=== PATIENT | male | born 1955 | race Caucasian/White ===

== ENCOUNTER 2017-04-17 12:24 | Inpatient (IN) | payer BC, OTHER ==
[~2017-04-17] VITALS: Ht 177.8 cm; Wt 81.3 kg
[2017-04-17] MEDS ORDERED: MULT-225 PO (13:23)
[2017-04-17 13:39] LABS: HEMATOCRIT 45.9 % (42-52); MEAN CELL VOLUME 86.8 fL (80-100); MEAN CORPUSCULAR HEMOGLOBIN 29.9 pg (25-34); MEAN CORPUSCULAR HGB CONC 34.4 g/dl (32-36); MEAN PLATELET VOLUME 10.8 fL (7.4-10.4); PLATELET COUNT 195 K/uL (130-400); RED BLOOD COUNT 5.29 M/uL (4.7-6.1); WHITE BLOOD COUNT 11.19 K/uL (4.8-10.8)
[2017-04-17 13:50] LABS: PARTIAL THROMBOPLASTIN RATIO 1.1; PROTHROMBIN TIME (PATIENT) 10.7 SECONDS (9.0-12.0)
--- NOTE | 2017-04-17 13:50 | EMERGENCY ROOM VISIT NOTE ---
History First contact with patient: 13:16 Chief Complaint: CHEST PAIN Stated Complaint: CHEST PAIN Nursing Triage Summary: Pt c/o right sided CP that radiates around to right upper back pain started around 0000 "I can't take a deep breath" History of Present Illness The patient is a 61 year old male who presents to the Emergency Room via private vehicle accompanied by family with complaints of "right-sided chest pain that radiates around the back". The patient states that this morning around midnight, he was laying in bed and developed right anterior chest pain. He states it radiated to his right scapular region. He states that he tossed and turned all night, but the pain was minimal nature. He states that he woke up to take care of the horses, and then went grocery shopping. Upon his return to home this morning around 11:30 AM or noon time, the right anterior chest pain worsened, and was feeling as though he could not take a deep breath. He rates the pain as a 5/10. The symptoms are worse with supine positioning. He denies any trauma, history of heart attack, history of diabetes, hypertension, high blood pressure, taking any medications other than a vitamin. He states that there is associated shortness of breath, and it hurts to take a deep breath localized to the right anterior chest. Review of Systems A complete 10-point Review of Systems was discussed with the patient, with pertinent positives and negatives listed in the History of Present Illness. All remaining Review of Systems questions can be considered negative unless otherwise specified. Past Medical/Surgical History Medical Problems: (1) No chronic problems (2) Pulmonary embolism Eczema, elbow surgery Family History Stroke, cancer Social History Smoking Status: Never Smoker Social History: Patient is currently retired, lives with and son. He denies tobacco and alcohol use. Current/Historical Medications Scheduled Multiple Vitamin (Multi-Day Vitamins), 1 TAB PO DAILY Allergies Coded Allergies: Codeine (Unverified Adverse Reaction, Unknown, NAUSEA, 04/17/17) Physical Exam Vital Signs Date Time Temp Pulse Resp B/P (MAP) Pulse Ox O2 Delivery O2 Flow Rate FiO2 04/17/17 15:56 71 16 126/79 97 Room Air 04/17/17 14:32 79 16 150/88 96 Nasal Cannula 2.0 04/17/17 14:22 75 20 145/90 97 Room Air 04/17/17 14:13 63 16 94/55 95 Nasal Cannula 2.0 04/17/17 13:14 90 16 128/76 94 Room Air 04/17/17 13:11 94 Room Air 04/17/17 13:11 94 Room Air 04/17/17 12:36 78 04/17/17 12:28 37.3 83 20 142/82 96 Room Air Physical Exam VITAL SIGNS - Vital signs and nursing notes were reviewed. Patient is afebrile , blood pressure 142/82, non-tachycardic and is saturating on room air 96%. GENERAL -61-year-old male appearing his stated age who is in no acute distress. Communicates well with provider and answers questions appropriately. SKIN - Without rashes. No petechial rashes. The skin overlying the anterior chest is unremarkable. HEAD - NC/AT. EYES - PERRL with EOMI bilaterally. Sclera anicteric. Palpebral conjunctiva pink and moist with no injection noted. EARS - No deformities of external structures noted on gross examination bilaterally. No pain elicited with palpation of the tragus bilaterally. External auditory canals without discharge or otorrhea. Tympanic membranes pearly kapadia without retraction or bulging. No fluid or purulent material visualized behind the TM. Handle of malleus, umbo, cone of light, pars tensa/ flaccid all easily visualized. NOSE - Midline and without cyanosis. No epistaxis or purulent drainage noted. Septum midline without deviation or septal hematoma noted. MOUTH/OROPHARYNX - Without perioral cyanosis. Buccal mucosa pink and moist and without leukoplakia. Tongue midline with equal elevation of palate bilaterally. No tonsillar hypertrophy, erythema, or exudates noted. [] dentition noted. NECK - Neck with FROM. Supple to palpation. No nuchal rigidity. No meningismus. LUNGS - Chest wall symmetric without accessory muscle use, intercostals retractions, or central cyanosis. Normal vesicular breath sounds in the anterior chest, diminished breath sounds appreciated to auscultation of the posterior chest bilaterally. No wheezes, rhonchi or crackles noted. CARDIAC - RRR with S1/S2. No murmur, rubs, or gallops appreciated. ABDOMEN - Abdominal contour without pulsations or visible masses. Negative Bejarano sign. BS normoactive all four quadrants. No tenderness, palpable masses , hepatosplenomegaly, or ascites noted. EXTREMITIES - No clubbing or peripheral cyanosis. No pretibial edema present. +5 /5 strength noted in UE/LE bilaterally. NEUROLOGIC - Cranial nerves II through XII grossly intact. PSYCH - Pt is very pleasant and interacts well with examiner. Medical Decision & Procedures ER Provider Diagnostic Interpretation: SINGLE VIEW CHEST CLINICAL HISTORY: Atypical chest pain. FINDINGS: An AP, portable, upright chest radiograph is compared to study dated 03/27/2011. The heart is top normal for projection and there is mild atherosclerotic calcification of the thoracic aorta. Chronic interstitial thickening similar to previous. Patchy airspace opacities are present at the right lung base. Trace pleural effusions are noted . No pneumothorax is seen. The skeletal structures are osteopenic. The bony thorax is grossly intact. IMPRESSION: 1. Patchy airspace consolidation is seen at the right lung base. Cortical clinically for evidence of pneumonia. Radiographic follow-up to resolution is recommended. 2. Trace pleural effusions are noted. Electronically signed by: Manuel Fontana M.D. 04/17/2017 2:16 PM Dictated Date/Time: 04/17/2017 2:[address] ANGIOGRAPHY THE CHEST WITHOUT A WITH CONTRAST CLINICAL HISTORY: Chest pain rating to the back. Possible dissection COMPARISON STUDY: Chest x-ray dated 04/17/2017 FINDINGS: Unenhanced images were acquired through the chest. There is no evidence of acute aortic hematoma. The patient was then scanned in a dynamic helical fashion during intravenous administration 120 cc of Optiray 320. MIP imaging was performed. There is an 8 mm right lobe thyroid nodule. There is no evidence of thoracic aortic dilatation. There are no intimal flaps to indicate acute aortic dissection. There is a right lower lobe pulmonary artery filling defect indicative a pulmonary embolism There are no pathologically enlarged axillary, mediastinal, or hilar lymph nodes. There is a small right pleural effusion. There are right lower lobe airspace opacities. Given the pulmonary embolism, this could represent an area of lung infarction. There are minor left basilar atelectatic changes. IMPRESSION: 1. No evidence of thoracic aortic aneurysm or dissection 2. Right lower lobe pulmonary embolism 3. Small right pleural effusion 4. Right lower lobe airspace opacities, possibly representing a pulmonary infarction given the associated pulmonary embolism Electronically signed by: Keith Barrera M.D. 04/17/2017 2:41 PM Dictated Date/Time: 04/17/2017 2:34 PM Laboratory Results 04/17/17 13:10 04/17/17 13:10 Test 04/17/17 13:10 04/17/17 13:15 04/17/17 15:30 Red Blood Count 5.29 M/uL (4.7-6.1) Mean Corpuscular Volume 86.8 fL (80-100) Mean Corpuscular Hemoglobin 29.9 pg (25-34) Mean Corpuscular Hemoglobin Concent 34.4 g/dl (32-36) RDW Standard Deviation 43.6 fL (36.4-46.3) RDW Coefficient of Variation 13.7 % (11.5-14.5) Mean Platelet Volume 10.8 fL (7.4-10.4) D-Dimer 1030 ug/L FEU (0-500) Anion Gap 9.0 mmol/L (3-11) Est Creatinine Clear Calc Drug Dose 63.9 ml/min Estimated GFR () 74.7 Estimated GFR (Non- 64.4 BUN/Creatinine Ratio 14.3 (10-20) Calcium Level 9.4 mg/dl (8.5-10.1) Total Bilirubin 0.6 mg/dl (0.2-1) Aspartate Amino Transf (AST/SGOT) 17 U/L (15-37) Alanine Aminotransferase (ALT/SGPT) 34 U/L (12-78) Alkaline Phosphatase 75 U/L (45-117) Total Creatine Kinase 92 U/L (39-308) Creatine Kinase MB 0.8 ng/ml (0.5-3.6) Creatine Kinase MB Ratio 0.9 (0-3.0) Pro-B-Type Natriuretic Peptide 52 pg/ml (0-900) Total Protein 7.3 gm/dl (6.4-8.2) Albumin 3.6 gm/dl (3.4-5.0) Globulin 3.7 gm/dl (2.5-4.0) Albumin/Globulin Ratio 1.0 (0.9-2) Lipase 176 U/L (73-393) Bedside Troponin I < 0.030 ng/ml (0-0.045) Prothrombin Time 10.8 SECONDS (9.0-12.0) Prothromb Time International Ratio 1.0 (0.9-1.1) Folate > 24.00 ng/mL (>5.38) Medications Administered Medications (Trade) Dose Ordered Sig/Daniel Route Start Time Stop Time Status Last Admin Dose Admin Fentanyl Citrate (Fentanyl Inj) 100 mcg STK-MED ONCE .ROUTE 04/17/17 14:16 04/17/17 14:17 DC 04/17/17 14:22 50 MCG Ondansetron HCl (Zofran Inj) 4 mg STK-MED ONCE .ROUTE 04/17/17 14:16 04/17/17 14:17 DC 04/17/17 14:22 4 MG Hydromorphone HCl (Dilaudid Inj) 0.5 mg NOW STAT IV 04/17/17 15:14 04/17/17 15:15 DC 04/17/17 15:23 0.5 MG Heparin Sodium/ Dextrose (Heparin 25,000 Unit/500ml D5W) 25,000 unit STK-MED ONCE .ROUTE 04/17/17 15:20 04/17/17 15:21 DC 04/17/17 15:49 25,000 UNIT Heparin Sodium (Porcine) (Heparin Sq 5000 Unit/0.5ml) 10,000 unit STK-MED ONCE .ROUTE 04/17/17 15:21 04/17/17 15:22 DC 04/17/17 15:48 6,000 UNIT Medical Decision Patient was seen and evaluated as above. After obtaining a thorough history and physical examination IV access was initiated and the above workup was performed. Patient has inspiratory right anterior chest pain. Initial differentials include NM, PE, dissection among others. Blood work is relatively unremarkable with a minimal leukocytosis. Chest x-ray reveals small pleural effusion, with concern over pneumonia. I was called to the room emergently, as the patient had become hypotensive, diaphoretic and pale. I did call my attending to the patient's bedside emergently. D-dimer elevated at 1030. No evidence of overt kidney failure. Electrolyte unremarkable. Kidney function and liver function okay. Troponin negative. BNP unremarkable. Stat CT for dissection was ordered. This was due to the patient's change in symptoms as well as increase of chest pain. CT scan results as above, there is evidence of a PE. Concern over infarct. Patient will be admitted for further evaluation and management. He was given fentanyl for his pain. The patient family was fairly educated upon today's findings. Please refer to further documentation regarding his stay. In evaluation treatment this patient following differential diagnoses were entertained: NM, PE, dissection, among others. Impression Primary Impression: Pulmonary embolism and infarction Departure Information Dispostion Admitted as an inpatient Condition FAIR Referrals Ernesto Charles M.D. (PCP) Patient Instructions [facility]
[2017-04-17 14:03] LABS: BUN/CREATININE RATIO 14.3 (10-20); CALCIUM 9.4 mg/dl (8.5-10.1); CREATININE 1.2 mg/dl (0.60-1.40); POTASSIUM 4.2 mmol/L (3.5-5.1)
[2017-04-17 14:08] LABS: CKMB/CK RATIO 0.9 (0-3.0)
[2017-04-17] MEDS ORDERED: ONDANSETRON INJ 2 MG/ML 2 ML VIAL ONE (14:16)
[2017-04-17] MEDS ORDERED: FENTANYL CITRATE INJ 50 MCG/1 ML 2 ML VIAL ONE (14:16)
--- NOTE | 2017-04-17 14:18 | DIAGNOSTIC IMAGING REPORT ---
SINGLE VIEW CHEST CLINICAL HISTORY: Atypical chest pain. FINDINGS: An AP, portable, upright chest radiograph is compared to study dated 03/27/2011. The heart is top normal for projection and there is mild atherosclerotic calcification of the thoracic aorta. Chronic interstitial thickening similar to previous. Patchy airspace opacities are present at the right lung base. Trace pleural effusions are noted . No pneumothorax is seen. The skeletal structures are osteopenic. The bony thorax is grossly intact. IMPRESSION: 1. Patchy airspace consolidation is seen at the right lung base. Cortical clinically for evidence of pneumonia. Radiographic follow-up to resolution is recommended. 2. Trace pleural effusions are noted. Electronically signed by: Manuel Fontana M.D. 04/17/2017 2:16 PM Dictated Date/Time: 04/17/2017 2:14 PM
[2017-04-17] MEDS ORDERED: OPTIRAY 320 IV PRN (14:30)
--- NOTE | 2017-04-17 14:43 | DIAGNOSTIC IMAGING REPORT ---
CT ANGIOGRAPHY THE CHEST WITHOUT A WITH CONTRAST CLINICAL HISTORY: Chest pain rating to the back. Possible dissection COMPARISON STUDY: Chest x-ray dated 04/17/2017 FINDINGS: Unenhanced images were acquired through the chest. There is no evidence of acute aortic hematoma. The patient was then scanned in a dynamic helical fashion during intravenous administration 120 cc of Optiray 320. MIP imaging was performed. There is an 8 mm right lobe thyroid nodule. There is no evidence of thoracic aortic dilatation. There are no intimal flaps to indicate acute aortic dissection. There is a right lower lobe pulmonary artery filling defect indicative a pulmonary embolism There are no pathologically enlarged axillary, mediastinal, or hilar lymph nodes. There is a small right pleural effusion. There are right lower lobe airspace opacities. Given the pulmonary embolism, this could represent an area of lung infarction. There are minor left basilar atelectatic changes. IMPRESSION: 1. No evidence of thoracic aortic aneurysm or dissection 2. Right lower lobe pulmonary embolism 3. Small right pleural effusion 4. Right lower lobe airspace opacities, possibly representing a pulmonary infarction given the associated pulmonary embolism Electronically signed by: Keith Barrera M.D. 04/17/2017 2:41 PM Dictated Date/Time: 04/17/2017 2:34 PM
[2017-04-17] MEDS ORDERED: HYDROmorphone INJ 0.5 MG/0.5 ML SYR IV STA (15:14)
[2017-04-17] MEDS ORDERED: HEPARIN 25000 UNIT/500 ML D5W ONE (15:20)
[2017-04-17] MEDS ORDERED: HEPARIN SOD 5000 UNIT/0.5 ML CARP ONE (15:21)
[2017-04-17 16:04] LABS: PROTHROMBIN TIME (PATIENT) 10.8 SECONDS (9.0-12.0)
[2017-04-17] MEDS ORDERED: ACETAMINOPHEN 325 MG TAB PO PRN (17:00)
[2017-04-17] MEDS ORDERED: ONDANSETRON INJ 2 MG/ML 2 ML VIAL IV PRN (17:00)
--- NOTE | 2017-04-17 17:08 | History and Physical ---
History & Physical Date & Time of Service: Apr 17, 2017 at 16:58 Chief Complaint: Chest Pain Primary Care Physician: Ernesto Charles M.D. History of Present Illness Source: patient, family, clinic records, hospital records 61 year old male with no known past medical history presenting with chest pain. Patient follows with Dr. Charles for Primary Care. 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 No recent surgery, long car or plane rides, episode of being bed bound. A few weeks ago, he noticed right upper leg swelling and tenderness, which resolved eventually. Last night, patient suddenly developed rights sided chest pain, worse with inspiration which persisted until today. Denies cough, sputum, hemoptysis, fever/chills. Pain persisted today prompting consult to the ER. CT chest (+ ) right lower lobe PE with pulmonary infarct Patient was started on Heparin bolus + drip and fentanyl and dilaudid. While being observed at the ER, after his blood draw, patient was having extreme right sided chest pain and then felt like he was passing out and noted to be pale He was laid down and after pain medication was given, felt improved. On exam, patient seen with family at bedside. He is very pleasant, speaks in sentences but still has moderate chest pain. No active dyspnea, dizziness, nausea. No other symptoms. Past Medical/Surgical History Medical Problems: (1) No chronic problems Status: Chronic Family History No pertinent family history Social History Smoking Status: Never Smoker Smokeless Tobacco Use: No Alcohol Use: none Drug Use: none Marital Status: Housing status: lives with family Occupational Status: employed Multi-Drug Resistant Organisms History of MDRO: No Allergies Coded Allergies: Codeine (Unverified Adverse Reaction, Unknown, NAUSEA, 04/17/17) Home Medications Scheduled Multiple Vitamin (Multi-Day Vitamins), 1 TAB PO DAILY Review of Systems Constitutional- no fever; no weight loss Eyes- no acute visual changes ENT- no sinus drainage; no pharyngitis Pulmonary-(+) as noted above Cardiac- no chest pain, no palpitations, no orthopnea, no dependent edema GI- no nausea, no vomiting, no diarrhea, no melena, no hematochezia - no dysuria, no hematuria Musculoskeletal- no arthralgias, no myalgias Derm- no rashes, no new skin lesions, no changing skin lesions Hematologic- no unusual bruising, no unusual bleeding Lymphatics- no adenopathy Endocrine- no polyuria or polydipsia; no heat or cold intolerance Neuro- no headaches, no focal neurologic symptoms Psych- no anxiety, no depression Physical Exam Vital Signs Date Time Temp Pulse Resp B/P (MAP) Pulse Ox O2 Delivery O2 Flow Rate FiO2 04/17/17 16:48 74 04/17/17 16:36 67 16 128/75 98 Room Air 04/17/17 15:56 71 16 126/79 97 Room Air 04/17/17 14:32 79 16 150/88 96 Nasal Cannula 2.0 04/17/17 14:22 75 20 145/90 97 Room Air 04/17/17 14:13 63 16 94/55 95 Nasal Cannula 2.0 04/17/17 13:14 90 16 128/76 94 Room Air 04/17/17 13:11 94 Room Air 04/17/17 13:11 94 Room Air 04/17/17 12:36 78 04/17/17 12:28 37.3 83 20 142/82 96 Room Air General Appearance: WD/WN, no apparent distress Head: normocephalic, atraumatic Eyes: normal inspection, PERRL, EOMI, sclerae normal ENT: normal ENT inspection, hearing grossly normal, pharynx normal Neck: supple, no adenopathy, thyroid normal, no JVD, trachea midline Respiratory/Chest: lungs clear, normal breath sounds, no respiratory distress, no accessory muscle use Cardiovascular: regular rate, rhythm, no JVD, no murmur, normal peripheral pulses Abdomen/GI: normal bowel sounds, non tender, soft Back: normal inspection, no CVA tenderness Extremities/Musculoskelatal: normal inspection, no calf tenderness, no pedal edema 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, no motor/sensory deficits, alert, normal mood/affect, oriented x 3 Skin: normal color, warm/dry, no rash Lymphatic: no adenopathy Diagnostics Laboratory Results Results Past 24 Hours Test 04/17/17 13:10 04/17/17 13:15 04/17/17 15:30 Range/Units White Blood Count 11.19 4.8-10.8 K/uL Red Blood Count 5.29 4.7-6.1 M/uL Hemoglobin 15.8 14.0-18.0 g/dL Hematocrit 45.9 42-52 % Mean Corpuscular Volume 86.8 80-100 fL Mean Corpuscular Hemoglobin 29.9 25-34 pg Mean Corpuscular Hemoglobin Concent 34.4 32-36 g/dl RDW Standard Deviation 43.6 36.4-46.3 fL RDW Coefficient of Variation 13.7 11.5-14.5 % Platelet Count 195 130-400 K/uL Mean Platelet Volume 10.8 7.4-10.4 fL Prothrombin Time 10.7 10.8 9.0-12.0 SECONDS Prothromb Time International Ratio 1.0 1.0 0.9-1.1 Activated Partial Thromboplast Time 27.5 25.2 21.0-31.0 SECONDS Partial Thromboplastin Ratio 1.1 1.0 D-Dimer 1030 0-500 ug/L FEU Sodium Level 139 136-145 mmol/L Potassium Level 4.2 3.5-5.1 mmol/L Chloride Level 101 98-107 mmol/L Carbon Dioxide Level 29 21-32 mmol/L Anion Gap 9.0 3-11 mmol/L Blood Urea Nitrogen 17 7-18 mg/dl Creatinine 1.20 0.60-1.40 mg/dl Est Creatinine Clear Calc Drug Dose 63.9 ml/min Estimated GFR () 74.7 Estimated GFR (Non- 64.4 BUN/Creatinine Ratio 14.3 10-20 Random Glucose 112 70-99 mg/dl Calcium Level 9.4 8.5-10.1 mg/dl Total Bilirubin 0.6 0.2-1 mg/dl Aspartate Amino Transf (AST/SGOT) 17 15-37 U/L Alanine Aminotransferase (ALT/SGPT) 34 12-78 U/L Alkaline Phosphatase 75 45-117 U/L Total Creatine Kinase 92 39-308 U/L Creatine Kinase MB 0.8 0.5-3.6 ng/ml Creatine Kinase MB Ratio 0.9 0-3.0 Pro-B-Type Natriuretic Peptide 52 0-900 pg/ml Total Protein 7.3 6.4-8.2 gm/dl Albumin 3.6 3.4-5.0 gm/dl Globulin 3.7 2.5-4.0 gm/dl Albumin/Globulin Ratio 1.0 0.9-2 Lipase 176 73-393 U/L Bedside Troponin I < 0.030 0-0.045 ng/ml Folate > 24.00 >5.38 ng/mL Diagnostic Radiology CT ANGIOGRAPHY THE CHEST WITHOUT A WITH CONTRAST CLINICAL HISTORY: Chest pain rating to the back. Possible dissection COMPARISON STUDY: Chest x-ray dated 04/17/2017 FINDINGS: Unenhanced images were acquired through the chest. There is no evidence of acute aortic hematoma. The patient was then scanned in a dynamic helical fashion during intravenous administration 120 cc of Optiray 320. MIP imaging was performed. There is an 8 mm right lobe thyroid nodule. There is no evidence of thoracic aortic dilatation. There are no intimal flaps to indicate acute aortic dissection. There is a right lower lobe pulmonary artery filling defect indicative a pulmonary embolism There are no pathologically enlarged axillary, mediastinal, or hilar lymph nodes. There is a small right pleural effusion. There are right lower lobe airspace opacities. Given the pulmonary embolism, this could represent an area of lung infarction. There are minor left basilar atelectatic changes. IMPRESSION: 1. No evidence of thoracic aortic aneurysm or dissection 2. Right lower lobe pulmonary embolism 3. Small right pleural effusion 4. Right lower lobe airspace opacities, possibly representing a pulmonary infarction given the associated pulmonary embolism EKG sinus rhythm, heart rate 80, no signs of acute ischemia or infarct Impression Assessment and Plan 61 year old male with no known past medical history presenting with chest pain. ACUTE PULMONARY EMBOLISM WITH PULMONARY INFARCT, RIGHT LOWER LOBE - BP and O2 sats stable - hypercoag work up pending check Echo - continue Heparin drip, possible transition to coumadin or NOACs tomorrow PRN Dilaudid Incentive spirometry - will consult Pulm SVC NEAR SYNCOPE - likely vasovagal - IV fluids monitor BP THYROID NODULE - seen on CT chest - check TSH Full code per patient Dispo pending anticipate d/c home when medically stable Level of Care Telemetry Advanced Directives Existing Advance Directive: No Resuscitation Status FULL RESUSCITATION VTE Prophylaxis VTE Risk Assessment Done? Y/N: Yes Risk Level: High Given or contraindicated: Unfractionated heparin SQ
[2017-04-17] MEDS ORDERED: HYDROmorphone INJ 0.5 MG/0.5 ML SYR IV ONE (17:15)
[2017-04-17 17:55] VITALS: BP 125/73; PULSE 78; TEMP 37.1; O2SAT 95; Ht 177.8 cm; Wt 81.3 kg
[2017-04-17] MEDS: SODIUM CHLORIDE 0.9% 1000ML 1,000 ML IV SCH (18:00)
[2017-04-17 19:33] VITALS: BP 116/75; PULSE 67; TEMP 37.2; O2SAT 94
[2017-04-17] MEDS: HYDROmorphone INJ 0.5 MG/0.5 ML SYR IV PRN (19:59)
--- NOTE | 2017-04-17 20:48 | EMERGENCY ROOM VISIT NOTE ---
History Report prepared by Madeline: Checo Calderon Under the Supervision of: Dr. Bam Joyce M.D. First contact with patient: 13:16 Chief Complaint: CHEST PAIN Stated Complaint: CHEST PAIN Nursing Triage Summary: Pt c/o right sided CP that radiates around to right upper back pain started around 0000 "I can't take a deep breath" History of Present Illness The patient is a 61 year old male who presents to the Emergency Room via private vehicle accompanied by family with complaints of worsening "right-sided chest pain that radiates around the back". The patient states that this morning around midnight, he was laying in bed and developed right anterior chest pain. He notes that it radiated to his right scapular region. He states that he tossed and turned all night, but the pain was minimal in nature. He says that he woke up to take care of the horses, and then went grocery shopping. Upon his return to home this morning around 11:30 AM or noon time, the right anterior chest pain worsened, and was feeling as though he could not take a deep breath. He currently rates the pain as a 7/10 in severity, which is not getting any better. The symptoms are worse with supine positioning. He denies any trauma, history of heart attack, history of diabetes, hypertension, high blood pressure, or taking any medications other than a vitamin. He states that there is associated shortness of breath, and it hurts to take a deep breath localized to the right anterior chest. Pt denies LOC, headache, fevers, chills, visual changes, neck pain, nausea, vomiting, abdominal pain, melena, hematochezia, urinary symptoms, numbness, weakness, lymphadenopathy, rash, or other complaints. Source of History: patient Onset: Around midnight Position: chest (right) Symptom Intensity: currently 7/10, at worst 7/10 Timing: other (persistent) Modifying Factors (Worsening): other (with supine positioning) Associated Symptoms: + SOB, + back pain Review of Systems See HPI for pertinent positives and negatives. A total of ten systems were reviewed and were otherwise negative. Past Medical & Surgical Medical Problems: (1) No chronic problems (2) Pulmonary embolism Family History No pertinent family history Social History Smoking Status: Never Smoker Marital Status: Housing Status: lives with family Occupation Status: retired Current/Historical Medications Scheduled Multiple Vitamin (Multi-Day Vitamins), 1 TAB PO DAILY Allergies Coded Allergies: Codeine (Unverified Adverse Reaction, Unknown, NAUSEA, 04/17/17) Physical Exam Vital Signs Date Time Temp Pulse Resp B/P (MAP) Pulse Ox O2 Delivery O2 Flow Rate FiO2 04/17/17 15:56 71 16 126/79 97 Room Air 04/17/17 14:32 79 16 150/88 96 Nasal Cannula 2.0 04/17/17 14:22 75 20 145/90 97 Room Air 04/17/17 14:13 63 16 94/55 95 Nasal Cannula 2.0 04/17/17 13:14 90 16 128/76 94 Room Air 04/17/17 13:11 94 Room Air 04/17/17 13:11 94 Room Air 04/17/17 12:36 78 04/17/17 12:28 37.3 83 20 142/82 96 Room Air Physical Exam GENERAL: Awake, alert, diaphoretic, uncomfortable appearing, in moderate distress. HENT: Normocephalic, atraumatic. Oropharynx unremarkable. EYES: Normal conjunctiva. Sclera non-icteric. NECK: Supple. No nuchal rigidity. FROM. No JVD. RESPIRATORY: Clear to auscultation. CARDIAC: Regular rate, normal rhythm. Extremities warm and well perfused. Pulses equal. ABDOMEN: Soft, non-distended. No tenderness to palpation. No rebound or guarding. No masses. RECTAL: Deferred. MUSCULOSKELETAL: Chest examination reveals no tenderness. The back is symmetrical on inspection without obvious abnormality. There is no CVA tenderness to palpation. No joint edema. LOWER EXTREMITIES: Calves are equal size bilaterally and non-tender. No edema. No discoloration. NEURO: Normal sensorium. No sensory or motor deficits noted. SKIN: No rash or jaundice noted. Medical Decision & Procedures ER Provider Diagnostic Interpretation: Radiology results as stated below per my review and radiologist interpretation: SINGLE VIEW CHEST CLINICAL HISTORY: Atypical chest pain. FINDINGS: An AP, portable, upright chest radiograph is compared to study dated 03/27/2011. The heart is top normal for projection and there is mild atherosclerotic calcification of the thoracic aorta. Chronic interstitial thickening similar to previous. Patchy airspace opacities are present at the right lung base. Trace pleural effusions are noted . No pneumothorax is seen. The skeletal structures are osteopenic. The bony thorax is grossly intact. IMPRESSION: 1. Patchy airspace consolidation is seen at the right lung base. Cortical clinically for evidence of pneumonia. Radiographic follow-up to resolution is recommended. 2. Trace pleural effusions are noted. Electronically signed by: Manuel Fontana M.D. 04/17/2017 2:16 PM Dictated Date/Time: 04/17/2017 2:[address] ANGIOGRAPHY THE CHEST WITHOUT A WITH CONTRAST CLINICAL HISTORY: Chest pain rating to the back. Possible dissection COMPARISON STUDY: Chest x-ray dated 04/17/2017 FINDINGS: Unenhanced images were acquired through the chest. There is no evidence of acute aortic hematoma. The patient was then scanned in a dynamic helical fashion during intravenous administration 120 cc of Optiray 320. MIP imaging was performed. There is an 8 mm right lobe thyroid nodule. There is no evidence of thoracic aortic dilatation. There are no intimal flaps to indicate acute aortic dissection. There is a right lower lobe pulmonary artery filling defect indicative a pulmonary embolism There are no pathologically enlarged axillary, mediastinal, or hilar lymph nodes. There is a small right pleural effusion. There are right lower lobe airspace opacities. Given the pulmonary embolism, this could represent an area of lung infarction. There are minor left basilar atelectatic changes. IMPRESSION: 1. No evidence of thoracic aortic aneurysm or dissection 2. Right lower lobe pulmonary embolism 3. Small right pleural effusion 4. Right lower lobe airspace opacities, possibly representing a pulmonary infarction given the associated pulmonary embolism Electronically signed by: Keith Barrera M.D. 04/17/2017 2:41 PM Dictated Date/Time: 04/17/2017 2:34 PM Laboratory Results 04/17/17 13:10 04/17/17 13:10 Test 04/17/17 13:10 04/17/17 13:15 04/17/17 15:30 Red Blood Count 5.29 M/uL (4.7-6.1) Mean Corpuscular Volume 86.8 fL (80-100) Mean Corpuscular Hemoglobin 29.9 pg (25-34) Mean Corpuscular Hemoglobin Concent 34.4 g/dl (32-36) RDW Standard Deviation 43.6 fL (36.4-46.3) RDW Coefficient of Variation 13.7 % (11.5-14.5) Mean Platelet Volume 10.8 fL (7.4-10.4) D-Dimer 1030 ug/L FEU (0-500) Anion Gap 9.0 mmol/L (3-11) Est Creatinine Clear Calc Drug Dose 63.9 ml/min Estimated GFR () 74.7 Estimated GFR (Non- 64.4 BUN/Creatinine Ratio 14.3 (10-20) Calcium Level 9.4 mg/dl (8.5-10.1) Total Bilirubin 0.6 mg/dl (0.2-1) Aspartate Amino Transf (AST/SGOT) 17 U/L (15-37) Alanine Aminotransferase (ALT/SGPT) 34 U/L (12-78) Alkaline Phosphatase 75 U/L (45-117) Total Creatine Kinase 92 U/L (39-308) Creatine Kinase MB 0.8 ng/ml (0.5-3.6) Creatine Kinase MB Ratio 0.9 (0-3.0) Pro-B-Type Natriuretic Peptide 52 pg/ml (0-900) Total Protein 7.3 gm/dl (6.4-8.2) Albumin 3.6 gm/dl (3.4-5.0) Globulin 3.7 gm/dl (2.5-4.0) Albumin/Globulin Ratio 1.0 (0.9-2) Lipase 176 U/L (73-393) Bedside Troponin I < 0.030 ng/ml (0-0.045) Prothrombin Time 10.8 SECONDS (9.0-12.0) Prothromb Time International Ratio 1.0 (0.9-1.1) Activated Partial Thromboplast Time 25.2 SECONDS (21.0-31.0) Partial Thromboplastin Ratio 1.0 Folate > 24.00 ng/mL (>5.38) Laboratory results reviewed by me Medications Administered Medications (Trade) Dose Ordered Sig/Daniel Route Start Time Stop Time Status Last Admin Dose Admin Fentanyl Citrate (Fentanyl Inj) 100 mcg STK-MED ONCE .ROUTE 04/17/17 14:16 04/17/17 14:17 DC 04/17/17 14:22 50 MCG Ondansetron HCl (Zofran Inj) 4 mg STK-MED ONCE .ROUTE 04/17/17 14:16 04/17/17 14:17 DC 04/17/17 14:22 4 MG Hydromorphone HCl (Dilaudid Inj) 0.5 mg NOW STAT IV 04/17/17 15:14 04/17/17 15:15 DC 04/17/17 15:23 0.5 MG Heparin Sodium/ Dextrose (Heparin 25,000 Unit/500ml D5W) 25,000 unit STK-MED ONCE .ROUTE 04/17/17 15:20 04/17/17 15:21 DC 04/17/17 15:49 25,000 UNIT Heparin Sodium (Porcine) (Heparin Sq 5000 Unit/0.5ml) 10,000 unit STK-MED ONCE .ROUTE 04/17/17 15:21 04/17/17 15:22 DC 04/17/17 15:48 6,000 UNIT ECG Indication: chest pain Rate (beats per minute): 74 Rhythm: normal sinus Findings: no acute ischemic change, no ectopy ED Course 1413: The patient was evaluated in room A11B. A complete history and physical exam was performed. 1445: Upon reexamination, the patient was resting comfortably. I discussed the test results and treatment plan with the patient and family. The patient will be evaluated for further management. 1502: I discussed the patient with Mary Curtis - she will evaluate the patient for further treatment. Medical Decision Blood pressure screening: Patient was found to have an elevated blood pressure and was referred to their primary doctor for recheck and further treatment. Triage Nursing notes reviewed. The patient's presentation and history were concerning for right-sided chest pain. The patient was receiving by Amarjit Oro PA-C and had a nonischemic ECG. The patient then developed worsening pain and became diaphoretic and hypotensive. Ice and care of the patient. He was given a dose of IV fentanyl after his blood pressure improved. He was placed on supplemental oxygen. He was still feeling discomfort and it was very pleuritic. His CBC and chemistry panel were unremarkable. The patient was taken to the CT suite for emergent imaging for concerns about dissection or possible pulmonary embolism. The patient did not have any evidence of dissection or pneumothorax. A right-sided pulmonary embolism and pulmonary infarction was noted. The patient was started on IV heparin after upper quadrant ability labs were drawn. Amarjit and Laura did discuss this issue with the patient and family. He will need further evaluation and management in the hospital. The patient was given a dose of IV Dilaudid and Zofran. Consultation was made with internal medicine. The patient was evaluated in the Emergency Room for further treatment. Consults Time Called: 1500 Consulting Physician: Mary Curtis Returned Call: 1502 I discussed the patient with Mary Curtis - she will evaluate the patient for further treatment. Impression Primary Impression: Pulmonary embolism and infarction Critical Care I have personally spent greater than 30 minutes of critical care time in the direct management of this patient. This includes bedside care, interpretation of diagnostic studies, and testing, discussion with consultants, patient, and family members, and other required patient management activities. This 30 minutes is in excess of all separately billable procedures. Scribe Attestation The scribe's documentation has been prepared under my direction and personally reviewed by me in its entirety. I confirm that the note above accurately reflects all work, treatment, procedures, and medical decision making performed by me. Departure Information Dispostion Being Evaluated By Hospitalist Referrals Ernesto Charles M.D. (PCP) Patient Instructions [facility]
[2017-04-17 23:46] VITALS: BP 111/69; PULSE 66; TEMP 36.7; O2SAT 95
[2017-04-18] VITALS (8 sets, daily range): BP systolic 109–159; BP diastolic 63–82; PULSE 60–90; TEMP 36.6–38.3; O2SAT 92–97
[2017-04-18 02:00] LABS: URINE APPEARANCE CLEAR (CLEAR); URINE BILIRUBIN NEG (NEG); URINE COLOR YELLOW; URINE NITRITE NEG (NEG); URINE SPECIFIC GRAVITY 1.044 (1.000-1.030); UROBILINOGEN NEG (NEG); ZZUR CULT IF INDIC CLEAN CATCH NO
[2017-04-18 02:10] LABS: MANUAL MICROSCOPIC REQUIRED? NO; REVIEW REQ? NO
[2017-04-18] MEDS: SODIUM CHLORIDE 0.9% 1000ML 1,000 ML IV SCH ×3 (02:45→23:01)
[2017-04-18] MEDS: HYDROmorphone INJ 0.5 MG/0.5 ML SYR IV PRN ×3 (02:45→15:16)
[2017-04-18 04:53] LABS: BASO % 0.1 %; BASO ABS # 0.01 K/uL (0-0.2); COMPLETE YES; HEMATOCRIT 41.2 % (42-52); IG% 0.2 %; LYMPH % 5.6 %; LYMPH ABS # 0.71 K/uL (1.2-3.4); MEAN CELL VOLUME 86.9 fL (80-100); MEAN CORPUSCULAR HEMOGLOBIN 28.5 pg (25-34); MEAN CORPUSCULAR HGB CONC 32.8 g/dl (32-36); MEAN PLATELET VOLUME 10.1 fL (7.4-10.4); MONO % 9.3 %; NEUT % 84.8 %; PLATELET COUNT 167 K/uL (130-400); RED BLOOD COUNT 4.74 M/uL (4.7-6.1); WHITE BLOOD COUNT 12.69 K/uL (4.8-10.8)
[2017-04-18 05:11] LABS: BUN/CREATININE RATIO 18.1 (10-20); POTASSIUM 4.3 mmol/L (3.5-5.1)
[2017-04-18 05:21] LABS: THYROID STIMULATING HORMONE 0.407 uIu/ml (0.300-4.500)
[2017-04-18 05:35] LABS: CALCIUM 8.4 mg/dl (8.5-10.1)
[2017-04-18] MEDS: HEPARIN 25,000 UNIT/500ML D5W 500 ML IV PRN ×2 (06:56→10:14)
[2017-04-18] MEDS: MULTIVITAMIN TAB PO SCH (07:34)
--- NOTE | 2017-04-18 12:06 | Pulmonary Consultation ---
History General Date of Service: Apr 18, 2017. Stated Complaint: Pulmonary Embolism HPI The patient is a 61 year old male who presents to [facility] with complaints of Pulmonary Embolism. The patient's primary care provider is Ernesto Charles M.D.. The patient says about 2.5 months ago he was carrying a log with his son in law who tripped and the log fell on the patients inner thigh and caused swelling and hematoma (blue violaceous color). The patient did not think much of it and it slowly resolved. He is active and works/walks/climbs stairs every day. No recent long car travel no flight travel/train travel. About 2 weeks ago he noted soreness in his right ankle when he walks no swelling erythma or warmth/hot sensation there. He had no swelling in the calf and did not think much of it. Yesterday in am he had excruciating right sided chest pain which was associated with some SOB but no palpitation nausea dizziness or diaphoresis. He arrived to ED and a CT angiogram was done to rule out aortic dissection. No dissection noted by a RLL filling density was seen. He was started on heparin. Patient denies history of GI bleed hematuria family history of clots weight loss decreased apetite or history of malignancy no history of arthritis. He had a near suncope in the ED apparently but the says he reacts by vasovagal manner to pains and stressors. Review of Systems Constitutional: reports: no symptoms Eyes: reports: no symptoms ENT: reports: no symptoms Cardiovascular: reports: as stated in HPI Respiratory: reports: as stated in HPI Gastrointestinal: reports: no symptoms Genitourinary - Male: reports: no symptoms Musculoskeletal: reports: as stated in HPI Integumentary: reports: no symptoms Neurologic: reports: no symptoms Endocrine: no symptoms Past Medical History Past Medical History: no reported chronic medical illnesses or surgical issues Family History No pertinent family history no history of clots or autoimmune diseases. Social History Hx Tobacco Use In Past Year?: No Smoking Status: Never Smoker Marital status: Housing status: lives with family Occupational Status: retired History of MDRO History of MDRO: No Allergies Coded Allergies: Codeine (Unverified Adverse Reaction, Unknown, NAUSEA, 04/17/17) Current Medications Reported Home Medications Medications Dose Route/Sig Max Daily Dose Days Date Category Multi-Day Vitamins (Multiple Vitamin) 1 Tab Tab 1 Tab PO DAILY 04/17/17 Reported Physical Physical Exam Vital Signs: Date Time Temp Pulse Resp B/P (MAP) Pulse Ox O2 Delivery O2 Flow Rate FiO2 04/18/17 08:00 Room Air 04/18/17 07:37 36.6 67 20 109/67 (81) 96 Room Air 04/18/17 04:00 Room Air 04/18/17 03:45 36.8 70 16 109/70 (83) 94 Room Air 04/18/17 00:00 Room Air 04/17/17 23:46 36.7 66 16 111/69 (83) 95 Room Air 04/17/17 19:33 37.2 67 20 116/75 (89) 94 Room Air 04/17/17 17:55 37.1 78 16 125/73 95 Room Air 04/17/17 16:48 74 04/17/17 16:36 67 16 128/75 98 Room Air 04/17/17 15:56 71 16 126/79 97 Room Air 04/17/17 14:32 79 16 150/88 96 Nasal Cannula 2.0 04/17/17 14:22 75 20 145/90 97 Room Air 04/17/17 14:13 63 16 94/55 95 Nasal Cannula 2.0 04/17/17 13:14 90 16 128/76 94 Room Air 04/17/17 13:11 94 Room Air 04/17/17 13:11 94 Room Air 04/17/17 12:36 78 04/17/17 12:28 37.3 83 20 142/82 96 Room Air General Appearance: WELL-APPEARING, severe distress, other (he was given pain medicine and appeared drowsy but arousablke and conversive.) Head: NORMOCEPHALIC Eyes: PERRLA ENT: NORMAL THROAT EXAM Neck: NORMAL RANGE OF MOTION, NO TENDERNESS, TRACHEA MIDLINE, NO STRIDOR, SUPPLE Respiratory: other (diminished breath sounds RLL field clear to auscultation on the left.) Cardiovasular: REGULAR RATE/RHYTHM, NO MURMUR Abdomen: NON TENDER, NORMAL BOWEL SOUNDS, NO REBOUND, NO MASSES, NO GUARDING Genitourinary - Male: EXTERNAL GENITALIA NORMAL Upper Extremities: NO EDEMA, NORMAL ROM Lower Extremities: NO EDEMA, NORMAL ROM, other (there is no hematoma on the inner aspect of the right thigh. ) Neuro: ALERT, ORIENTED x 3, NORMAL MOTOR EXAM Diagnostics Labs Results Past 24 Hours Test 04/17/17 13:10 04/17/17 13:15 04/17/17 15:30 04/17/17 21:50 Range/Units White Blood Count 11.19 4.8-10.8 K/uL Red Blood Count 5.29 4.7-6.1 M/uL Hemoglobin 15.8 14.0-18.0 g/dL Hematocrit 45.9 42-52 % Mean Corpuscular Volume 86.8 80-100 fL Mean Corpuscular Hemoglobin 29.9 25-34 pg Mean Corpuscular Hemoglobin Concent 34.4 32-36 g/dl RDW Standard Deviation 43.6 36.4-46.3 fL RDW Coefficient of Variation 13.7 11.5-14.5 % Platelet Count 195 130-400 K/uL Mean Platelet Volume 10.8 7.4-10.4 fL Prothrombin Time 10.7 10.8 9.0-12.0 SECONDS Prothromb Time International Ratio 1.0 1.0 0.9-1.1 Activated Partial Thromboplast Time 27.5 25.2 53.0 21.0-31.0 SECONDS Partial Thromboplastin Ratio 1.1 1.0 2.0 D-Dimer 1030 0-500 ug/L FEU Sodium Level 139 136-145 mmol/L Potassium Level 4.2 3.5-5.1 mmol/L Chloride Level 101 98-107 mmol/L Carbon Dioxide Level 29 21-32 mmol/L Anion Gap 9.0 3-11 mmol/L Blood Urea Nitrogen 17 7-18 mg/dl Creatinine 1.20 0.60-1.40 mg/dl Est Creatinine Clear Calc Drug Dose 63.9 ml/min Estimated GFR () 74.7 Estimated GFR (Non- 64.4 BUN/Creatinine Ratio 14.3 10-20 Random Glucose 112 70-99 mg/dl Calcium Level 9.4 8.5-10.1 mg/dl Total Bilirubin 0.6 0.2-1 mg/dl Aspartate Amino Transf (AST/SGOT) 17 15-37 U/L Alanine Aminotransferase (ALT/SGPT) 34 12-78 U/L Alkaline Phosphatase 75 45-117 U/L Total Creatine Kinase 92 39-308 U/L Creatine Kinase MB 0.8 0.5-3.6 ng/ml Creatine Kinase MB Ratio 0.9 0-3.0 Pro-B-Type Natriuretic Peptide 52 0-900 pg/ml Total Protein 7.3 6.4-8.2 gm/dl Albumin 3.6 3.4-5.0 gm/dl Globulin 3.7 2.5-4.0 gm/dl Albumin/Globulin Ratio 1.0 0.9-2 Lipase 176 73-393 U/L Bedside Troponin I < 0.030 0-0.045 ng/ml Folate > 24.00 >5.38 ng/mL Test 04/18/17 01:50 04/18/17 04:40 Range/Units Urine Color YELLOW Urine Appearance CLEAR CLEAR Urine pH 7.0 4.5-7.5 Urine Specific [place] 1.044 1.000-1.030 Urine Protein NEG NEG Urine Glucose (UA) NEG NEG Urine Ketones TRACE NEG Urine Occult Blood NEG NEG Urine Nitrite NEG NEG Urine Bilirubin NEG NEG Urine Urobilinogen NEG NEG Urine Leukocyte Esterase NEG NEG White Blood Count 12.69 4.8-10.8 K/uL Red Blood Count 4.74 4.7-6.1 M/uL Hemoglobin 13.5 14.0-18.0 g/dL Hematocrit 41.2 42-52 % Mean Corpuscular Volume 86.9 80-100 fL Mean Corpuscular Hemoglobin 28.5 25-34 pg Mean Corpuscular Hemoglobin Concent 32.8 32-36 g/dl Platelet Count 167 130-400 K/uL Mean Platelet Volume 10.1 7.4-10.4 fL Neutrophils (%) (Auto) 84.8 % Lymphocytes (%) (Auto) 5.6 % Monocytes (%) (Auto) 9.3 % Eosinophils (%) (Auto) 0.0 % Basophils (%) (Auto) 0.1 % Neutrophils # (Auto) 10.76 1.4-6.5 K/uL Lymphocytes # (Auto) 0.71 1.2-3.4 K/uL Monocytes # (Auto) 1.18 0.11-0.59 K/uL Eosinophils # (Auto) 0.00 0-0.5 K/uL Basophils # (Auto) 0.01 0-0.2 K/uL RDW Standard Deviation 45.0 36.4-46.3 fL RDW Coefficient of Variation 14.0 11.5-14.5 % Immature Granulocyte % (Auto) 0.2 % Immature Granulocyte # (Auto) 0.03 0.00-0.02 K/uL Activated Partial Thromboplast Time 77.2 21.0-31.0 SECONDS Partial Thromboplastin Ratio 3.0 Sodium Level 140 136-145 mmol/L Potassium Level 4.3 3.5-5.1 mmol/L Chloride Level 106 98-107 mmol/L Carbon Dioxide Level 28 21-32 mmol/L Anion Gap 6.0 3-11 mmol/L Blood Urea Nitrogen 18 7-18 mg/dl Creatinine 1.00 0.60-1.40 mg/dl Est Creatinine Clear Calc Drug Dose 79.1 ml/min Estimated GFR () 93.1 Estimated GFR (Non- 80.3 BUN/Creatinine Ratio 18.1 10-20 Random Glucose 153 70-99 mg/dl Calcium Level 8.4 8.5-10.1 mg/dl Thyroid Stimulating Hormone (TSH) 0.407 0.300-4.500 uIu/ml Diagnostic Radiology CT chest RLL filling defect. Radiology Interpretation: CXR NORMAL EKG Interpretation: NORMAL EKG Impression Assessment and Plan this is a 61 yo male previously reported chronic medical illnesses who had a recent trauma to the right thigh and as such he has a provoked pulmonary embolism. The 3mbolus is not saddle it did not lead to hemodynamic instability and is small to cause RV strain and as such no thrombolysis is indicated. Agree with IV heparin. PTT per protocol Please obtain LE venous doppler and if he has no DVT we may change him to lovenix 1 mg /kg BID SC start coumadin tonight. INR PTT daily would recommend to anticoagulate patient 3-6 months and then stop as this is a first time provoked PE. Overlap heparin (or lovenox) and coumadin x 2 days with therapeutic INR before stopping heparin/lovenox. given the R lower fluid and the infiltrative findings on the RLL he may be having an element of lung infarction and I would recommend to FU with CXR for a day or 2 while the anticoagulation is ongoing to ascertain the effusion is not enlarging. Also Hb/Hct trending daily would help shed light on this matter. agree with dilauded for pain and incentive spirometry. It is not necessary to do a hypercoagulable workup if it appears to be a provoked PE. However, since it is being done for the completion I would also send PSA. The patient had no history or ulcers or tendency to bleed. However, if NOAC are contemplated then would recommend eliquis given lover risk of bleeding. He also has a normal renal function. Would defer non respiratory medical treatment to the primary team. Code Status Level 1 - Full Code
[2017-04-18 12:11] LABS: PARTIAL THROMBOPLASTIN RATIO 2.4
--- NOTE | 2017-04-18 13:57 | DIAGNOSTIC IMAGING REPORT ---
SINGLE VIEW CHEST CLINICAL HISTORY: Pleural effusion. FINDINGS: An AP, portable, upright chest radiograph is compared to study dated 04/17/2017. Correlation is made with chest CT dated 04/17/2017. The heart appears mildly enlarged and there is mild atherosclerotic calcification of the thoracic aorta. Chronic interstitial thickening similar to previous. There is a small right pleural effusion with right basilar consolidation. This is unchanged to minimally increased from yesterday. Trace pleural effusion is suggested on the left. No pneumothorax is seen. The skeletal structures are osteopenic. The bony thorax is grossly intact. IMPRESSION: 1. A small pleural effusion and patchy consolidation is again seen at the right lung base. The pleural effusion is unchanged to slightly increased in size from yesterday. 2. A trace left pleural effusion is suspected. Electronically signed by: Manuel Fontana M.D. 04/18/2017 1:56 PM Dictated Date/Time: 04/18/2017 1:53 PM
[2017-04-18] MEDS ORDERED: HYDROmorphone INJ 0.5 MG/0.5 ML SYR IV STA (15:59)
--- NOTE | 2017-04-18 16:01 | ECHOCARDIOGRAM REPORT ---
*NOTICE TO RECEIVING DEMOCRAT AGENCY This information is strictly Confidential and protected under [place] law. [place] law prohibits you from making any further disclosure of this information unless further disclosure is expressly permitted by the written consent of the person to whom it pertains or is authorized by law. A general authorization for the release of medical or other information is not sufficient for this purpose. Hospital accepts no responsibility if the information is made available to any other person, INCLUDING THE PATIENT. Interpretation Summary * Name: TONY LOPEZ Study Date: 04/18/2017 06:44 AM BP: 109/70 mmHg * Patient Location: C.2T\S\S239\S\2 HR: 66 * : 1955 (M/d/yyyy) Gender: Male Height: 69 in * Age: 61 yrs Ethnicity: CA Weight: 174 lb * Ordering Physician: Jayme Rodriguez * Performed By: Ania Chambers * * Reason For Study: PE, NEAR SYNCOPE * BSA: 1.9 m2 * The study was technically adequate. * -- Conclusions -- * There is mild concentric left ventricular hypertrophy. * The left ventricular wall motion is normal. * Ejection Fraction = 60-65%. * The right ventricle is normal in size and function. * There is trace tricuspid regurgitation. * Borderline to mild pulmonary hypertension is present. * The calculated PA systolic pressure =38 mm Hg, assuming a right atrial pressure of 3 mm Hg. * 0n initial review of the study, there was concern of a tricuspid valve mass. * Additional images were obtained, and based on the additional images, it was felt that the TV echodensity was an artifact and was not visualized on additional images taken from multiple perspectives. Procedure Details * A complete two-dimensional transthoracic echocardiogram was performed (2D, M-mode, Doppler and color flow Doppler). Left Ventricle * The left ventricle is normal in size. * There is mild concentric left ventricular hypertrophy. * Left ventricular systolic function is normal. * Ejection Fraction = 60-65%. * The left ventricular wall motion is normal. Right Ventricle * The right ventricle is normal in size and function. * The right ventricular systolic function is normal as assessed by tricuspid annular plane systolic excursion (TAPSE) (normal >1.5 cm). Atria * The left atrial size is normal. * Right atrial size is normal. * There is no evidence of atrial septal defect, but resolution does not allow assessment for a patent foramen ovale. Mitral Valve * The mitral valve is normal. * There is no mitral valve stenosis. * Significant mitral regurgitation is absent. Tricuspid Valve * The tricuspid valve is normal. * There is no tricuspid stenosis. * There is trace tricuspid regurgitation. * Borderline to mild pulmonary hypertension is present. The calculated PA systolic pressure =38 mm Hg, assuming a right atrial pressure of 3 mm Hg. Aortic Valve * The aortic valve is trileaflet. * Aortic stenosis is absent. * There is no significant aortic regurgitation. Pulmonic Valve * The pulmonary valve is not well seen, but the Doppler examination is normal without significant regurgitation or stenosis. Great Vessels * The aortic root and proximal ascending aorta are normal sized. Pericardium/Pleural * There is no pericardial effusion. Great Vessels * Normal inferior vena cava diameter and respiratory variation suggests normal central venous pressure. Left Ventricular Diastolic Function * Grade I diastolic dysfunction, (abnormal relaxation pattern). MMode 2D Measurements and Calculations IVSd 1.2 cm IVSs 1.7 cm LVIDd 4.2 cm LVIDs 2.6 cm LVPWd 1.1 cm LVPWs 1.9 cm IVS/LVPW 1.0 FS 39.8 % EDV(Teich) 80.6 ml ESV(Teich) 23.6 ml EF(Teich) 70.7 % EDV(cubed) 76.5 ml ESV(cubed) 16.7 ml EF(cubed) 78.2 % % IVS thick 45.2 % % LVPW thick 67.7 % LV mass(C)d 171.5 grams LV mass(C)dI 88.1 grams/m\S\2 LV mass(C)s 182.1 grams LV mass(C)sI 93.5 grams/m\S\2 CO(Teich) 4.1 l/min CI(Teich) 2.1 l/min/m\S\2 SV(Teich) 57.0 ml SI(Teich) 29.3 ml/m\S\2 CO(cubed) 4.3 l/min CI(cubed) 2.2 l/min/m\S\2 SV(cubed) 59.8 ml SI(cubed) 30.7 ml/m\S\2 ACS 1.6 cm LA dimension 3.3 cm asc Aorta Diam 2.8 cm LVOT diam 2.0 cm LVOT area 3.1 cm\S\2 LVAd ap4 27.6 cm\S\2 LVLd ap4 7.6 cm EDV(MOD-sp4) 82.5 ml LVAs ap4 14.8 cm\S\2 LVLs ap4 6.4 cm ESV(MOD-sp4) 28.5 ml EF(MOD-sp4) 65.5 % LVAd ap2 24.7 cm\S\2 LVLd ap2 7.3 cm EDV(MOD-sp2) 71.1 ml LVAs ap2 12.3 cm\S\2 LVLs ap2 5.6 cm ESV(MOD-sp2) 23.8 ml EF(MOD-sp2) 66.5 % CO(MOD-sp4) 3.9 l/min CI(MOD-sp4) 2.0 l/min/m\S\2 SV(MOD-sp4) 54.0 ml SI(MOD-sp4) 27.7 ml/m\S\2 CO(MOD-sp2) 3.4 l/min CI(MOD-sp2) 1.7 l/min/m\S\2 SV(MOD-sp2) 47.3 ml SI(MOD-sp2) 24.3 ml/m\S\2 Doppler Measurements and Calculations MV E max lidia 90.2 cm/sec MV A max lidia 57.2 cm/sec MV E/A 1.6 MV dec time 0.24 sec Ao V2 max 137.1 cm/sec Ao max PG 7.5 mmHg Ao max PG (full) 1.6 mmHg JOSEFINA(V,A) 2.8 cm\S\2 JOSEFINA(V,D) 2.8 cm\S\2 LV V1 max PG 5.9 mmHg LV V1 max 121.3 cm/sec PA V2 max 56.8 cm/sec PA max PG 1.3 mmHg PI end-d lidia 73.7 cm/sec TR max lidia 283.5 cm/sec
--- NOTE | 2017-04-18 16:03 | Cardiology Consultation ---
Cardiology Consultation Date of Consultation: Apr 18, 2017 History of Present Illness Patient is a 61 year old male seen in cardiology consultation per the request of Dr Rodriguez due to concerns of a tricuspid valve mass on transthoracic echocardiogram. Patient was admitted for chest pain and has been diagnosed with pulmonary embolism with pulmonary infarction. He notes continued R sided chest pain, worse with deep inspiration and shortness of breath with minimal activity such as walking to the bathroom. History Past Medical History: Negative for chronic illness Past Surgical History: Remote screening colonoscopy Social History: Non smoker. , lives with family. previous [employer] employee Family History: Believes his father had a heart valve surgery, details unknown. Review Of Systems See above for pertinent positives & negatives. A total of 10 systems reviewed and were otherwise negative. Allergies Coded Allergies: Codeine (Unverified Adverse Reaction, Unknown, NAUSEA, 04/17/17) Medications Reported Home Medications Medications Dose Route/Sig Max Daily Dose Days Date Category Multi-Day Vitamins (Multiple Vitamin) 1 Tab Tab 1 Tab PO DAILY 04/17/17 Reported Physical Exam Vital Signs (Last 8hrs): Last 8 Hrs Date Time Temp Pulse Resp B/P (MAP) Pulse Ox O2 Delivery O2 Flow Rate FiO2 04/18/17 15:42 37.3 86 16 159/82 (107) 97 04/18/17 12:00 Room Air 04/18/17 11:51 36.9 60 18 115/63 (80) 95 04/18/17 08:00 Room Air General Appearance: Alert and Oriented x3. NAD. Head: Normocephalic Atraumatic. Eyes: PERRLA, EOMI, conjunctiva and sclera clear Neck: Supple. No carotid bruits noted. No JVD. No HJD. Respiratory: Breath sounds clear to auscultation bilaterally. No w/r/r. Cardiovascular: Reg rate and rhythm. S1 and S2 noted. No murmurs, rubs, gallops. PMI non displace. Abdomen: Normal bowel sounds, soft nontender. no abdominal bruits. Extremities: No edema, no clubbing or cyanosis. distal pulses 2/4 bilaterally. Neuro: No focal deficits. Psychiatric: Normal affect. Data Last 24 Hours Test 04/17/17 21:50 04/18/17 01:50 04/18/17 04:40 04/18/17 11:43 Activated Partial Thromboplast Time 53.0 SECONDS 77.2 SECONDS 63.4 SECONDS Partial Thromboplastin Ratio 2.0 3.0 2.4 Urine Color YELLOW Urine Appearance CLEAR Urine pH 7.0 Urine Specific [place] 1.044 Urine Protein NEG Urine Glucose (UA) NEG Urine Ketones TRACE Urine Occult Blood NEG Urine Nitrite NEG Urine Bilirubin NEG Urine Urobilinogen NEG Urine Leukocyte Esterase NEG White Blood Count 12.69 K/uL Red Blood Count 4.74 M/uL Hemoglobin 13.5 g/dL Hematocrit 41.2 % Mean Corpuscular Volume 86.9 fL Mean Corpuscular Hemoglobin 28.5 pg Mean Corpuscular Hemoglobin Concent 32.8 g/dl Platelet Count 167 K/uL Mean Platelet Volume 10.1 fL Neutrophils (%) (Auto) 84.8 % Lymphocytes (%) (Auto) 5.6 % Monocytes (%) (Auto) 9.3 % Eosinophils (%) (Auto) 0.0 % Basophils (%) (Auto) 0.1 % Neutrophils # (Auto) 10.76 K/uL Lymphocytes # (Auto) 0.71 K/uL Monocytes # (Auto) 1.18 K/uL Eosinophils # (Auto) 0.00 K/uL Basophils # (Auto) 0.01 K/uL RDW Standard Deviation 45.0 fL RDW Coefficient of Variation 14.0 % Immature Granulocyte % (Auto) 0.2 % Immature Granulocyte # (Auto) 0.03 K/uL Sodium Level 140 mmol/L Potassium Level 4.3 mmol/L Chloride Level 106 mmol/L Carbon Dioxide Level 28 mmol/L Anion Gap 6.0 mmol/L Blood Urea Nitrogen 18 mg/dl Creatinine 1.00 mg/dl Est Creatinine Clear Calc Drug Dose 79.1 ml/min Estimated GFR () 93.1 Estimated GFR (Non- 80.3 BUN/Creatinine Ratio 18.1 Random Glucose 153 mg/dl Calcium Level 8.4 mg/dl Thyroid Stimulating Hormone (TSH) 0.407 uIu/ml EK04/17/17, NSR in the 70's normal EKG. Telemetry reviewed: SR Assessment & Plan Summary of TTecho performed 04/18/17 and reviewed by the undersigned. There is mild concentric left ventricular hypertrophy. The left ventricular wall motion is normal. The LV Ejection Fraction = 60-65%. The right ventricle is normal in size and function. There is trace tricuspid regurgitation. Borderline to mild pulmonary hypertension is present. The calculated PA systolic pressure =38 mm Hg, assuming a right atrial pressure of 3 mm Hg. On initial review of the study, there was concern of a tricuspid valve mass. Additional images were obtained, and based on the additional images, it was felt that the TV echodensity was an artifact and was not visualized on additional images taken from multiple perspectives. Impression: Echo findings as noted above. Plan: Agree with anticoagulation. No indication for [place] as the TTEcho is adequate. María Vegas DO
[2017-04-18] MEDS: WARFARIN SOD 5 MG TAB PO SCH (16:37)
[2017-04-18] MEDS ORDERED: HYDROmorphone INJ 1 MG/ML SYR IV PRN (17:00)
--- NOTE | 2017-04-18 19:12 | DIAGNOSTIC IMAGING REPORT ---
ULTRASOUND BILATERAL LOWER EXTREMITY VENOUS CLINICAL HISTORY: Pulmonary embolus. Leg pain. COMPARISON STUDY: No priors. TECHNIQUE: Real-time, grayscale, and color Doppler sonography of the deep veins of the right and left lower extremity was performed from the inguinal crease to the calf. Compression and augmentation were utilized. FINDINGS: There is no sonographic evidence of deep venous thrombosis identified in the right or left lower extremity. The common femoral, superficial femoral, and popliteal veins are patent and normally compressible bilaterally. The greater saphenous vein and the profunda femoris vein at the junction with the common femoral vein are clear in both legs. The visualized calf veins are patent bilaterally. IMPRESSION: There is no sonographic evidence of deep venous thrombosis identified in the right or left lower extremity. Electronically signed by: Manuel Fontana M.D. 04/18/2017 7:11 PM Dictated Date/Time: 04/18/2017 7:11 PM
--- NOTE | 2017-04-18 19:34 | Progress Note ---
Medicine Progress Note Date & Time of Visit: Apr 18, 2017 at 19:27. Subjective resting in bed, not in distress still has right sided chest pain- moderate to severe some relief with analgesics mild dyspnea no cough, hemoptysis, chills no other symptoms Objective Last 8 Hrs Date Time Temp Pulse Resp B/P (MAP) Pulse Ox O2 Delivery O2 Flow Rate FiO2 04/18/17 19:24 38.3 90 16 131/72 (91) 92 04/18/17 16:07 97 Room Air 04/18/17 15:42 37.3 86 16 159/82 (107) 97 04/18/17 12:00 Room Air 04/18/17 11:51 36.9 60 18 115/63 (80) 95 Physical Exam: General- oriented x 3, not in distress, speaks in sentences with no effort Eyes- EOMI, anicteric Neck- no JVD Lungs- mild rales right base, no wheezing, clear on the left Heart- regular rhythm; no murmur, normal rate Abdomen- normal bowel sounds, soft, nontender Extremities- no pretibial edema, no calf tenderness Neuro- alert, oriented x 3; no gross focal deficits Skin- warm & dry Laboratory Results: Last 24 Hours Test 04/17/17 21:50 04/18/17 01:50 04/18/17 04:40 04/18/17 11:43 Activated Partial Thromboplast Time 53.0 SECONDS 77.2 SECONDS 63.4 SECONDS Partial Thromboplastin Ratio 2.0 3.0 2.4 Urine Color YELLOW Urine Appearance CLEAR Urine pH 7.0 Urine Specific [place] 1.044 Urine Protein NEG Urine Glucose (UA) NEG Urine Ketones TRACE Urine Occult Blood NEG Urine Nitrite NEG Urine Bilirubin NEG Urine Urobilinogen NEG Urine Leukocyte Esterase NEG White Blood Count 12.69 K/uL Red Blood Count 4.74 M/uL Hemoglobin 13.5 g/dL Hematocrit 41.2 % Mean Corpuscular Volume 86.9 fL Mean Corpuscular Hemoglobin 28.5 pg Mean Corpuscular Hemoglobin Concent 32.8 g/dl Platelet Count 167 K/uL Mean Platelet Volume 10.1 fL Neutrophils (%) (Auto) 84.8 % Lymphocytes (%) (Auto) 5.6 % Monocytes (%) (Auto) 9.3 % Eosinophils (%) (Auto) 0.0 % Basophils (%) (Auto) 0.1 % Neutrophils # (Auto) 10.76 K/uL Lymphocytes # (Auto) 0.71 K/uL Monocytes # (Auto) 1.18 K/uL Eosinophils # (Auto) 0.00 K/uL Basophils # (Auto) 0.01 K/uL RDW Standard Deviation 45.0 fL RDW Coefficient of Variation 14.0 % Immature Granulocyte % (Auto) 0.2 % Immature Granulocyte # (Auto) 0.03 K/uL Sodium Level 140 mmol/L Potassium Level 4.3 mmol/L Chloride Level 106 mmol/L Carbon Dioxide Level 28 mmol/L Anion Gap 6.0 mmol/L Blood Urea Nitrogen 18 mg/dl Creatinine 1.00 mg/dl Est Creatinine Clear Calc Drug Dose 79.1 ml/min Estimated GFR () 93.1 Estimated GFR (Non- 80.3 BUN/Creatinine Ratio 18.1 Random Glucose 153 mg/dl Calcium Level 8.4 mg/dl Thyroid Stimulating Hormone (TSH) 0.407 uIu/ml Assessment & Plan 61 year old male with no known past medical history presenting with chest pain. ACUTE PULMONARY EMBOLISM WITH PULMONARY INFARCT, RIGHT LOWER LOBE - still has significant pain increased Dilaudid to 1mg q4h hemodynamically stable - hypercoag work up pending Echo; * There is mild concentric left ventricular hypertrophy. * The left ventricular wall motion is normal. * Ejection Fraction = 60-65%. * The right ventricle is normal in size and function. * There is trace tricuspid regurgitation. * Borderline to mild pulmonary hypertension is present. * The calculated PA systolic pressure =38 mm Hg, assuming a right atrial pressure of 3 mm Hg. * 0n initial review of the study, there was concern of a tricuspid valve mass. * Additional images were obtained, and based on the additional images, it was felt that the TV echodensity was an artifact and was not visualized on additional images taken from multiple perspectives. * - Pulmonary consulted, appreciate the input repeat CXR: no significant changes Venous doppler: negative for DV - started Coumadin 5mg daily continue Heparin drip day 2 Incentive spirometry continue pain management NEAR SYNCOPE - likely vasovagal - IV fluids monitor BP THYROID NODULE - seen on CT chest - TSH normal - further work up as outpatient Full code per patient Dispo pending anticipate d/c home when medically stable lives with family at home ff up with PCP Dr. Charles needs to establish care with [facility] Current Inpatient Medications: Current Inpatient Medications Medications (Trade) Dose Ordered Sig/Daniel Route Start Time Stop Time Status Last Admin Dose Admin Ioversol (Optiray 320) 125 ml UD PRN IV 04/17/17 14:30 04/21/17 14:29 Sodium Chloride 1,000 ml @ 100 mls/hr Q10H IV 04/17/17 17:00 05/17/17 16:59 04/18/17 11:37 100 MLS/HR Multivitamins (Multivitamin Tab) 1 tab DAILY PO 04/18/17 09:00 05/18/17 08:59 04/18/17 07:34 1 TAB Acetaminophen (Tylenol Tab) 650 mg Q4H PRN PO 04/17/17 17:00 05/17/17 16:59 04/18/17 19:21 650 MG Ondansetron HCl (Zofran Inj) 4 mg Q6H PRN IV 04/17/17 17:00 05/17/17 16:59 04/18/17 02:45 4 MG Heparin Sodium/ Dextrose 500 ml @ 24 mls/hr [id number] PRN IV 04/17/17 18:15 05/17/17 18:14 04/18/17 10:14 24 MLS/HR Warfarin Sodium (Coumadin Tab) 5 mg DAILY@16 PO 04/18/17 16:00 05/18/17 15:59 04/18/17 16:37 5 MG Hydromorphone HCl (Dilaudid Inj) 1 mg Q4H PRN IV 04/18/17 17:00 05/01/17 16:59
[2017-04-19] VITALS (9 sets, daily range): BP systolic 114–135; BP diastolic 69–81; PULSE 78–86; TEMP 36.7–37.4; O2SAT 91–98
[2017-04-19 05:13] LABS: BASO % 0.1 %; BASO ABS # 0.01 K/uL (0-0.2); COMPLETE YES; EOS % 0.1 %; HEMATOCRIT 40.7 % (42-52); IG% 0.3 %; LYMPH % 8.9 %; LYMPH ABS # 1.21 K/uL (1.2-3.4); MEAN CELL VOLUME 87.7 fL (80-100); MEAN CORPUSCULAR HEMOGLOBIN 28.9 pg (25-34); MEAN CORPUSCULAR HGB CONC 32.9 g/dl (32-36); MONO % 11.6 %; PLATELET COUNT 155 K/uL (130-400); RED BLOOD COUNT 4.64 M/uL (4.7-6.1); WHITE BLOOD COUNT 13.57 K/uL (4.8-10.8)
[2017-04-19 05:32] LABS: PARTIAL THROMBOPLASTIN RATIO 2.3
[2017-04-19 05:39] LABS: CREATININE 0.9 mg/dl (0.60-1.40); POTASSIUM 4.1 mmol/L (3.5-5.1)
[2017-04-19 06:55] LABS: CALCIUM 8.2 mg/dl (8.5-10.1)
--- NOTE | 2017-04-19 07:08 | DIAGNOSTIC IMAGING REPORT ---
CHEST ONE VIEW PORTABLE CLINICAL HISTORY: FU possible RLL effusion/hemothroax from lung infarction PE dyspnea COMPARISON STUDY: 04/18/2017 FINDINGS: Unchanging pleural reactive change and atelectatic change right lung base. Trace pleural fluid left base. Minimal retrocardiac atelectasis. Mid and upper lungs are considered clear. IMPRESSION: No change from the prior study. Unchanging right and to a lesser extent left basilar atelectatic and effusion-type change Electronically signed by: Peet Wasserman M.D. 04/19/2017 7:07 AM Dictated Date/Time: 04/19/2017 7:06 AM
[2017-04-19] MEDS: MULTIVITAMIN TAB PO SCH (08:10)
[2017-04-19] MEDS: SODIUM CHLORIDE 0.9% 1000ML 1,000 ML IV SCH (08:10)
[2017-04-19] MEDS: HEPARIN 25,000 UNIT/500ML D5W 500 ML IV PRN (08:14)
[2017-04-19 09:24] LABS: INR 1.1 (0.9-1.1); PROTHROMBIN TIME (PATIENT) 11.8 SECONDS (9.0-12.0)
--- NOTE | 2017-04-19 12:32 | Pulmonology Progress Note ---
Pulmonary Progress Note Date of Service Apr 19, 2017. Attending Dr. Aminah Cardoso The patient was admitted with RLL PE and is stable with only complaint of back pain occaisonally His RLE sonogram is negative for DVT CXR serially shows no worsening of pleural fluid and hence evolving hemothorax is unlikely. updated him and the family at bedside Objective General Appearance: WELL-APPEARING, severe distress, other (he was given pain medicine and appeared drowsy but arousable and conversive.) Head: NORMOCEPHALIC Eyes: PERRLA ENT: NORMAL THROAT EXAM Neck: NORMAL RANGE OF MOTION, NO TENDERNESS, TRACHEA MIDLINE, NO STRIDOR, SUPPLE Respiratory: other (diminished breath sounds RLL field clear to auscultation on the left.) Cardiovasular: REGULAR RATE/RHYTHM, NO MURMUR Abdomen: NON TENDER, NORMAL BOWEL SOUNDS, NO REBOUND, NO MASSES, NO GUARDING Genitourinary - Male: EXTERNAL GENITALIA NORMAL Upper Extremities: NO EDEMA, NORMAL ROM Lower Extremities: NO EDEMA, NORMAL ROM, other (there is no hematoma on the inner aspect of the right thigh. ) Neuro: ALERT, ORIENTED x 3, NORMAL MOTOR EXAM Assessment & Plan this is a 61 yo male previously reported chronic medical illnesses who had a recent trauma to the right thigh and as such he has a provoked pulmonary embolism. The 3mbolus is not saddle it did not lead to hemodynamic instability and is small to cause RV strain and as such no thrombolysis is indicated. Agree with IV heparin. PTT per protocol LE venous doppler shows no DVT we may change him to lovenx 1 mg /kg BID SC started coumadin. INR PTT daily would recommend to anticoagulate patient 3-6 months and then stop as this is a first time provoked PE. Overlap heparin (or lovenox) and coumadin x 2 days with therapeutic INR before stopping heparin/lovenox. agree with dilauded for pain and incentive spirometry. hypercoagulable workup and PSA pending Would defer non respiratory medical treatment to the primary team. At this time pulmonary would follow peripherally please reconsult if need be. Data Medications: Current Inpatient Medications Medications (Trade) Dose Ordered Sig/Daniel Route Start Time Stop Time Status Last Admin Dose Admin Ioversol (Optiray 320) 125 ml UD PRN IV 04/17/17 14:30 04/21/17 14:29 Sodium Chloride 1,000 ml @ 100 mls/hr Q10H IV 04/17/17 17:00 05/17/17 16:59 04/19/17 08:10 100 MLS/HR Multivitamins (Multivitamin Tab) 1 tab DAILY PO 04/18/17 09:00 05/18/17 08:59 04/19/17 08:10 1 TAB Acetaminophen (Tylenol Tab) 650 mg Q4H PRN PO 04/17/17 17:00 05/17/17 16:59 04/18/17 19:21 650 MG Ondansetron HCl (Zofran Inj) 4 mg Q6H PRN IV 04/17/17 17:00 05/17/17 16:59 04/18/17 02:45 4 MG Heparin Sodium/ Dextrose 500 ml @ 24 mls/hr [id number] PRN IV 04/17/17 18:15 05/17/17 18:14 04/19/17 08:14 24 MLS/HR Warfarin Sodium (Coumadin Tab) 5 mg DAILY@16 PO 04/18/17 16:00 05/18/17 15:59 04/18/17 16:37 5 MG Hydromorphone HCl (Dilaudid Inj) 1 mg Q4H PRN IV 04/18/17 17:00 05/01/17 16:59 Vital Signs: Date Time Temp Pulse Resp B/P (MAP) Pulse Ox O2 Delivery O2 Flow Rate FiO2 04/19/17 12:00 Room Air 04/19/17 08:00 Room Air 04/19/17 08:00 37.1 81 18 128/74 (92) 93 Room Air 04/19/17 04:42 97 Room Air 04/19/17 03:49 37.1 86 22 135/81 (99) 92 Room Air 04/19/17 00:35 97 Room Air 04/18/17 23:25 37.0 79 20 117/67 (84) 93 Room Air 04/18/17 20:20 97 Room Air 04/18/17 19:24 38.3 90 16 131/72 (91) 92 04/18/17 16:07 97 Room Air 04/18/17 15:42 37.3 86 16 159/82 (107) 97 Laboratory Results: Last 24 Hours Test 04/19/17 05:04 White Blood Count 13.57 K/uL Red Blood Count 4.64 M/uL Hemoglobin 13.4 g/dL Hematocrit 40.7 % Mean Corpuscular Volume 87.7 fL Mean Corpuscular Hemoglobin 28.9 pg Mean Corpuscular Hemoglobin Concent 32.9 g/dl Platelet Count 155 K/uL Mean Platelet Volume 10.0 fL Neutrophils (%) (Auto) 79.0 % Lymphocytes (%) (Auto) 8.9 % Monocytes (%) (Auto) 11.6 % Eosinophils (%) (Auto) 0.1 % Basophils (%) (Auto) 0.1 % Neutrophils # (Auto) 10.73 K/uL Lymphocytes # (Auto) 1.21 K/uL Monocytes # (Auto) 1.57 K/uL Eosinophils # (Auto) 0.01 K/uL Basophils # (Auto) 0.01 K/uL RDW Standard Deviation 45.2 fL RDW Coefficient of Variation 13.9 % Immature Granulocyte % (Auto) 0.3 % Immature Granulocyte # (Auto) 0.04 K/uL Prothrombin Time 11.8 SECONDS Prothromb Time International Ratio 1.1 Activated Partial Thromboplast Time 59.3 SECONDS Partial Thromboplastin Ratio 2.3 Sodium Level 140 mmol/L Potassium Level 4.1 mmol/L Chloride Level 107 mmol/L Carbon Dioxide Level 28 mmol/L Anion Gap 5.0 mmol/L Blood Urea Nitrogen 16 mg/dl Creatinine 0.90 mg/dl Est Creatinine Clear Calc Drug Dose 87.9 ml/min Estimated GFR () 105.7 Estimated GFR (Non- 91.2 BUN/Creatinine Ratio 18.0 Random Glucose 111 mg/dl Calcium Level 8.2 mg/dl
--- NOTE | 2017-04-19 12:33 | Progress Note ---
Medicine Progress Note Date & Time of Visit: Apr 19, 2017 at 12:25. Subjective 61 year old male with no known past medical history presenting with chest pain 2 /2 PE. Concerns for pulmonary infarct, however, no change on CXR today and patient feels improved overall. Did not require dilaudid overnight. -states that chest pain is improved today and mostly hurts when taking a deep breath -denies SOB with exertion -toelrating PO -ambulates to bathroom several times overnight without lightheadedness. Objective Last 8 Hrs Date Time Temp Pulse Resp B/P (MAP) Pulse Ox O2 Delivery O2 Flow Rate FiO2 04/19/17 12:00 37.4 79 18 135/71 (92) 98 Room Air 04/19/17 12:00 Room Air 04/19/17 08:00 Room Air 04/19/17 08:00 37.1 81 18 128/74 (92) 93 Room Air 04/19/17 04:42 97 Room Air Physical Exam: GEN: WNWD, in no acute distress, alert and appropriate HEENT: NC/AT, pupils are equal and round bilaterally, normal sclerae CARDIO: reg rate, S1/2 heard without m/g/r, no chest wall tenderness to palpation LUNGS: CTA bilaterally, no crackles, rales or wheezes, good diaphragmatic excursion, he has obvious discomfort with taking deep breath. ABD: + BS, soft, non-tender, non-distended, no rebound or guarding EXTREMITY: RP and DP palpable 2+ bilat, no LE swelling or edema, extremities are warm and well-perfused NEURO: CN 2-12 grossly intact, sensation intact throughout, no gross focal deficits. MUSC: 5/5 strength throughout, no gross focal deficits SKIN: warm and dry Laboratory Results: 04/19/17 05:04 Red Blood Count 4.64, Mean Corpuscular Volume 87.7, Mean Corpuscular Hemoglobin 28.9, Mean Corpuscular Hemoglobin Concent 32.9, Mean Platelet Volume 10.0, Neutrophils (%) (Auto) 79.0, Lymphocytes (%) (Auto) 8.9, Monocytes (%) (Auto) 11.6, Eosinophils (%) (Auto) 0.1, Basophils (%) (Auto) 0.1, Neutrophils # (Auto ) 10.73, Lymphocytes # (Auto) 1.21, Monocytes # (Auto) 1.57, Eosinophils # (Auto ) 0.01, Basophils # (Auto) 0.01 04/19/17 05:04 Test 04/17/17 13:10 04/17/17 13:15 04/17/17 15:30 04/18/17 01:50 D-Dimer 1030 ug/L FEU (0-500) Total Bilirubin 0.6 mg/dl (0.2-1) Aspartate Amino Transf (AST/SGOT) 17 U/L (15-37) Alanine Aminotransferase (ALT/SGPT) 34 U/L (12-78) Alkaline Phosphatase 75 U/L (45-117) Total Creatine Kinase 92 U/L (39-308) Creatine Kinase MB 0.8 ng/ml (0.5-3.6) Creatine Kinase MB Ratio 0.9 (0-3.0) Pro-B-Type Natriuretic Peptide 52 pg/ml (0-900) Total Protein 7.3 gm/dl (6.4-8.2) Albumin 3.6 gm/dl (3.4-5.0) Globulin 3.7 gm/dl (2.5-4.0) Albumin/Globulin Ratio 1.0 (0.9-2) Lipase 176 U/L (73-393) Bedside Troponin I < 0.030 ng/ml (0-0.045) Folate > 24.00 ng/mL (>5.38) Urine Color YELLOW Urine Appearance CLEAR (CLEAR) Urine pH 7.0 (4.5-7.5) Urine Specific [place] 1.044 (1.000-1.030) Urine Protein NEG (NEG) Urine Glucose (UA) NEG (NEG) Urine Ketones TRACE (NEG) Urine Occult Blood NEG (NEG) Urine Nitrite NEG (NEG) Urine Bilirubin NEG (NEG) Urine Urobilinogen NEG (NEG) Urine Leukocyte Esterase NEG (NEG) Test 04/18/17 04:40 04/19/17 05:04 Thyroid Stimulating Hormone (TSH) 0.407 uIu/ml (0.300-4.500) White Blood Count 13.57 K/uL (4.8-10.8) Red Blood Count 4.64 M/uL (4.7-6.1) Hemoglobin 13.4 g/dL (14.0-18.0) Hematocrit 40.7 % (42-52) Mean Corpuscular Volume 87.7 fL (80-100) Mean Corpuscular Hemoglobin 28.9 pg (25-34) Mean Corpuscular Hemoglobin Concent 32.9 g/dl (32-36) Platelet Count 155 K/uL (130-400) Mean Platelet Volume 10.0 fL (7.4-10.4) Neutrophils (%) (Auto) 79.0 % Lymphocytes (%) (Auto) 8.9 % Monocytes (%) (Auto) 11.6 % Eosinophils (%) (Auto) 0.1 % Basophils (%) (Auto) 0.1 % Neutrophils # (Auto) 10.73 K/uL (1.4-6.5) Lymphocytes # (Auto) 1.21 K/uL (1.2-3.4) Monocytes # (Auto) 1.57 K/uL (0.11-0.59) Eosinophils # (Auto) 0.01 K/uL (0-0.5) Basophils # (Auto) 0.01 K/uL (0-0.2) RDW Standard Deviation 45.2 fL (36.4-46.3) RDW Coefficient of Variation 13.9 % (11.5-14.5) Immature Granulocyte % (Auto) 0.3 % Immature Granulocyte # (Auto) 0.04 K/uL (0.00-0.02) Prothrombin Time 11.8 SECONDS (9.0-12.0) Prothromb Time International Ratio 1.1 (0.9-1.1) Activated Partial Thromboplast Time 59.3 SECONDS (21.0-31.0) Partial Thromboplastin Ratio 2.3 Anion Gap 5.0 mmol/L (3-11) Est Creatinine Clear Calc Drug Dose 87.9 ml/min Estimated GFR () 105.7 Estimated GFR (Non- 91.2 BUN/Creatinine Ratio 18.0 (10-20) Calcium Level 8.2 mg/dl (8.5-10.1) Last 24 Hours Test 04/19/17 05:04 White Blood Count 13.57 K/uL Red Blood Count 4.64 M/uL Hemoglobin 13.4 g/dL Hematocrit 40.7 % Mean Corpuscular Volume 87.7 fL Mean Corpuscular Hemoglobin 28.9 pg Mean Corpuscular Hemoglobin Concent 32.9 g/dl Platelet Count 155 K/uL Mean Platelet Volume 10.0 fL Neutrophils (%) (Auto) 79.0 % Lymphocytes (%) (Auto) 8.9 % Monocytes (%) (Auto) 11.6 % Eosinophils (%) (Auto) 0.1 % Basophils (%) (Auto) 0.1 % Neutrophils # (Auto) 10.73 K/uL Lymphocytes # (Auto) 1.21 K/uL Monocytes # (Auto) 1.57 K/uL Eosinophils # (Auto) 0.01 K/uL Basophils # (Auto) 0.01 K/uL RDW Standard Deviation 45.2 fL RDW Coefficient of Variation 13.9 % Immature Granulocyte % (Auto) 0.3 % Immature Granulocyte # (Auto) 0.04 K/uL Prothrombin Time 11.8 SECONDS Prothromb Time International Ratio 1.1 Activated Partial Thromboplast Time 59.3 SECONDS Partial Thromboplastin Ratio 2.3 Sodium Level 140 mmol/L Potassium Level 4.1 mmol/L Chloride Level 107 mmol/L Carbon Dioxide Level 28 mmol/L Anion Gap 5.0 mmol/L Blood Urea Nitrogen 16 mg/dl Creatinine 0.90 mg/dl Est Creatinine Clear Calc Drug Dose 87.9 ml/min Estimated GFR () 105.7 Estimated GFR (Non- 91.2 BUN/Creatinine Ratio 18.0 Random Glucose 111 mg/dl Calcium Level 8.2 mg/dl Assessment & Plan 61 year old male with no known past medical history presenting with chest pain 2 /2 PE. Concerns for pulmonary infarct, however, no change on CXR today and patient feels improved overall. Did not require dilaudid overnight. 1. Acute pulmonary embolism, RLL-questionable pulm infarct, however, CXR is unchanged this morning. Appreciate continued pulm recs. I feel he is stable to come off tele at this time. Will cont heparin drip as bridge to coumadin until INR therapeutic for two days. Uncertain that this was provoked PE as pt denies any recent surgery, long trips or periods of immobilization. Hypercoagulable workup is pending. No DVT per us. Cont incentive spirometry and pain mangement. Pt denies lightheadedness with ambulation 2. Thyroid nodule-found incidentally on imaging. TSH normal. Further workup as outpatient. 3. Leukocytosis 2/2 #1 DVT prophy: coumadin/heparin Full code Dispo: anticipate d/c home when INR therap for two days; lives with family at home; ff up with PCP Dr. Prince Constanza Parekh DO [facility] Hospitalist Current Inpatient Medications: Current Inpatient Medications Medications (Trade) Dose Ordered Sig/Daniel Route Start Time Stop Time Status Last Admin Dose Admin Ioversol (Optiray 320) 125 ml UD PRN IV 04/17/17 14:30 04/21/17 14:29 Sodium Chloride 1,000 ml @ 100 mls/hr Q10H IV 04/17/17 17:00 05/17/17 16:59 04/19/17 08:10 100 MLS/HR Multivitamins (Multivitamin Tab) 1 tab DAILY PO 04/18/17 09:00 05/18/17 08:59 04/19/17 08:10 1 TAB Acetaminophen (Tylenol Tab) 650 mg Q4H PRN PO 04/17/17 17:00 05/17/17 16:59 04/18/17 19:21 650 MG Ondansetron HCl (Zofran Inj) 4 mg Q6H PRN IV 04/17/17 17:00 05/17/17 16:59 04/18/17 02:45 4 MG Heparin Sodium/ Dextrose 500 ml @ 24 mls/hr [id number] PRN IV 04/17/17 18:15 05/17/17 18:14 04/19/17 08:14 24 MLS/HR Warfarin Sodium (Coumadin Tab) 5 mg DAILY@16 PO 04/18/17 16:00 05/18/17 15:59 04/18/17 16:37 5 MG Hydromorphone HCl (Dilaudid Inj) 1 mg Q4H PRN IV 04/18/17 17:00 05/01/17 16:59
[2017-04-19] MEDS: WARFARIN SOD 5 MG TAB PO SCH (18:01)
[2017-04-20 04:49] LABS: BASO % 0.2 %; BASO ABS # 0.02 K/uL (0-0.2); COMPLETE YES; EOS % 0.3 %; HEMATOCRIT 41.1 % (42-52); IG% 0.5 %; MEAN CELL VOLUME 86.9 fL (80-100); MEAN CORPUSCULAR HEMOGLOBIN 29.4 pg (25-34); MEAN CORPUSCULAR HGB CONC 33.8 g/dl (32-36); MEAN PLATELET VOLUME 10.4 fL (7.4-10.4); MONO % 12.7 %; NEUT % 71.3 %; PLATELET COUNT 181 K/uL (130-400); RED BLOOD COUNT 4.73 M/uL (4.7-6.1)
[2017-04-20 05:07] LABS: BUN/CREATININE RATIO 11.8 (10-20); CREATININE 1.1 mg/dl (0.60-1.40); POTASSIUM 4.4 mmol/L (3.5-5.1)
[2017-04-20 05:08] LABS: INR 1.1 (0.9-1.1); PARTIAL THROMBOPLASTIN RATIO 1.8; PROTHROMBIN TIME (PATIENT) 11.7 SECONDS (9.0-12.0)
[2017-04-20 05:12] LABS: PROSTATE SPECIFIC ANTIGEN 0.62 ng/ml (0.000-4.000)
[2017-04-20 05:14] LABS: CALCIUM 8.8 mg/dl (8.5-10.1)
[2017-04-20] MEDS ORDERED: HEPARIN IV BOLUS 3,000 UNIT in SYRINGE 0 ML IV ONE (06:15)
[2017-04-20] MEDS: HEPARIN 25,000 UNIT/500ML D5W 500 ML IV PRN (06:48)
[2017-04-20 07:33] VITALS: BP_SYST 132; BP_SYST 134; BP_DIAS 79; BP_DIAS 80; PULSE 50; PULSE 76; TEMP 37; TEMP 37.3; O2SAT 93
[2017-04-20] MEDS: MULTIVITAMIN TAB PO SCH (08:52)
--- NOTE | 2017-04-20 13:49 | Pulmonology Progress Note ---
Pulmonary Progress Note Date of Service Apr 20, 2017. Attending Dr. Lee Subjective Patient is doing well today has no active pulmonary complaints. Objective Patient looks well social signs of respiratory insufficiency is able to complete full sentences. General Appearance: WELL-APPEARING, severe distress, other (he was given pain medicine and appeared drowsy but arousable and conversive.) Head: NORMOCEPHALIC Eyes: PERRLA ENT: NORMAL THROAT EXAM Neck: NORMAL RANGE OF MOTION, NO TENDERNESS, TRACHEA MIDLINE, NO STRIDOR, SUPPLE Respiratory: other (diminished breath sounds RLL field clear to auscultation on the left.) Cardiovasular: REGULAR RATE/RHYTHM, NO MURMUR Abdomen: NON TENDER, NORMAL BOWEL SOUNDS, NO REBOUND, NO MASSES, NO GUARDING Genitourinary - Male: EXTERNAL GENITALIA NORMAL Upper Extremities: NO EDEMA, NORMAL ROM Lower Extremities: NO EDEMA, NORMAL ROM, other (there is no hematoma on the inner aspect of the right thigh. ) Neuro: ALERT, ORIENTED x 3, NORMAL MOTOR EXAM Assessment & Plan 61-year-old male with a provoked pulmonary embolism status post trauma to his right thigh: #1 Pulmonary Embolism: I agree with the patient's current treatment but also note that he could be switched to Xarelto. With her patient's current condition he did be initiated on Xarelto and discharge later this evening. I will leave this up to the primary care team. Data Medications: Current Inpatient Medications Medications (Trade) Dose Ordered Sig/Daniel Route Start Time Stop Time Status Last Admin Dose Admin Ioversol (Optiray 320) 125 ml UD PRN IV 04/17/17 14:30 04/21/17 14:29 Multivitamins (Multivitamin Tab) 1 tab DAILY PO 04/18/17 09:00 05/18/17 08:59 04/20/17 08:52 1 TAB Acetaminophen (Tylenol Tab) 650 mg Q4H PRN PO 04/17/17 17:00 05/17/17 16:59 04/18/17 19:21 650 MG Ondansetron HCl (Zofran Inj) 4 mg Q6H PRN IV 04/17/17 17:00 05/17/17 16:59 04/18/17 02:45 4 MG Heparin Sodium/ Dextrose 500 ml @ 27 mls/hr [id number] PRN IV 04/17/17 18:15 05/17/17 18:14 04/20/17 06:48 27 MLS/HR Warfarin Sodium (Coumadin Tab) 5 mg DAILY@16 PO 04/18/17 16:00 05/18/17 15:59 04/19/17 18:01 5 MG Hydromorphone HCl (Dilaudid Inj) 1 mg Q4H PRN IV 04/18/17 17:00 05/01/17 16:59 Vital Signs: Date Time Temp Pulse Resp B/P (MAP) Pulse Ox O2 Delivery O2 Flow Rate FiO2 04/20/17 09:37 Room Air 04/20/17 07:33 37.3 76 16 132/80 (97) 93 04/20/17 00:00 Room Air 04/19/17 23:25 36.7 78 18 114/69 (84) 91 Room Air 04/19/17 20:00 Room Air 04/19/17 16:52 94 Room Air 04/19/17 14:21 36.9 78 18 123/76 (92) 94 Room Air 04/19/17 13:56 37.4 79 18 98 2.0 Laboratory Results: Last 24 Hours Test 04/20/17 04:40 04/20/17 13:05 White Blood Count 11.30 K/uL Red Blood Count 4.73 M/uL Hemoglobin 13.9 g/dL Hematocrit 41.1 % Mean Corpuscular Volume 86.9 fL Mean Corpuscular Hemoglobin 29.4 pg Mean Corpuscular Hemoglobin Concent 33.8 g/dl Platelet Count 181 K/uL Mean Platelet Volume 10.4 fL Neutrophils (%) (Auto) 71.3 % Lymphocytes (%) (Auto) 15.0 % Monocytes (%) (Auto) 12.7 % Eosinophils (%) (Auto) 0.3 % Basophils (%) (Auto) 0.2 % Neutrophils # (Auto) 8.05 K/uL Lymphocytes # (Auto) 1.70 K/uL Monocytes # (Auto) 1.44 K/uL Eosinophils # (Auto) 0.03 K/uL Basophils # (Auto) 0.02 K/uL RDW Standard Deviation 43.8 fL RDW Coefficient of Variation 13.7 % Immature Granulocyte % (Auto) 0.5 % Immature Granulocyte # (Auto) 0.06 K/uL Prothrombin Time 11.7 SECONDS Prothromb Time International Ratio 1.1 Activated Partial Thromboplast Time 46.7 SECONDS 51.0 SECONDS Partial Thromboplastin Ratio 1.8 2.0 Sodium Level 138 mmol/L Potassium Level 4.4 mmol/L Chloride Level 103 mmol/L Carbon Dioxide Level 29 mmol/L Anion Gap 6.0 mmol/L Blood Urea Nitrogen 13 mg/dl Creatinine 1.10 mg/dl Est Creatinine Clear Calc Drug Dose 71.9 ml/min Estimated GFR () 82.9 Estimated GFR (Non- 71.6 BUN/Creatinine Ratio 11.8 Random Glucose 100 mg/dl Calcium Level 8.8 mg/dl Prostate Specific Antigen 0.620 ng/ml
[2017-04-20] MEDS: WARFARIN SOD 5 MG TAB PO SCH (15:53)
[2017-04-20 15:56] VITALS: BP 145/78; PULSE 78; TEMP 37.4; O2SAT 94
--- NOTE | 2017-04-20 22:21 | Progress Note ---
Medicine Progress Note Date & Time of Visit: Apr 20, 2017 at 22:02. Subjective 61 year old male with no known past medical history presenting with chest pain 2 /2 PE. Concerns for pulmonary infarct, however, no change on repeat CXR and patient feels improved overall. Not requiring pain meds. Was transferred to the floor and repeat INR on 04/20 was still 1.1. Pulm considered Xarelto, however, this was too expensive and not covered by insurance. -feeling well, asymptomatic -ambulating without difficulty -BM today -tolerating PO -mentating well. -denies chest pain. Objective Last 8 Hrs Date Time Temp Pulse Resp B/P (MAP) Pulse Ox O2 Delivery O2 Flow Rate FiO2 04/20/17 15:56 37.4 78 18 145/78 (100) 94 Room Air 04/20/17 15:45 Room Air Physical Exam: GEN: WNWD, in no acute distress, alert and appropriate HEENT: NC/AT, pupils are equal and round bilaterally, normal sclerae CARDIO: reg rate, S1/2 heard without m/g/r, no chest wall tenderness to palpation LUNGS: CTA bilaterally, no crackles, rales or wheezes, good diaphragmatic excursion, he has obvious discomfort with taking deep breath. ABD: + BS, soft, non-tender, non-distended, no rebound or guarding EXTREMITY: RP and DP palpable 2+ bilat, no LE swelling or edema, extremities are warm and well-perfused NEURO: CN 2-12 grossly intact, sensation intact throughout, no gross focal deficits. MUSC: 5/5 strength throughout, no gross focal deficits SKIN: warm and dry Laboratory Results: Last 24 Hours Test 04/20/17 04:40 04/20/17 13:05 White Blood Count 11.30 K/uL Red Blood Count 4.73 M/uL Hemoglobin 13.9 g/dL Hematocrit 41.1 % Mean Corpuscular Volume 86.9 fL Mean Corpuscular Hemoglobin 29.4 pg Mean Corpuscular Hemoglobin Concent 33.8 g/dl Platelet Count 181 K/uL Mean Platelet Volume 10.4 fL Neutrophils (%) (Auto) 71.3 % Lymphocytes (%) (Auto) 15.0 % Monocytes (%) (Auto) 12.7 % Eosinophils (%) (Auto) 0.3 % Basophils (%) (Auto) 0.2 % Neutrophils # (Auto) 8.05 K/uL Lymphocytes # (Auto) 1.70 K/uL Monocytes # (Auto) 1.44 K/uL Eosinophils # (Auto) 0.03 K/uL Basophils # (Auto) 0.02 K/uL RDW Standard Deviation 43.8 fL RDW Coefficient of Variation 13.7 % Immature Granulocyte % (Auto) 0.5 % Immature Granulocyte # (Auto) 0.06 K/uL Prothrombin Time 11.7 SECONDS Prothromb Time International Ratio 1.1 Activated Partial Thromboplast Time 46.7 SECONDS 51.0 SECONDS Partial Thromboplastin Ratio 1.8 2.0 Sodium Level 138 mmol/L Potassium Level 4.4 mmol/L Chloride Level 103 mmol/L Carbon Dioxide Level 29 mmol/L Anion Gap 6.0 mmol/L Blood Urea Nitrogen 13 mg/dl Creatinine 1.10 mg/dl Est Creatinine Clear Calc Drug Dose 71.9 ml/min Estimated GFR () 82.9 Estimated GFR (Non- 71.6 BUN/Creatinine Ratio 11.8 Random Glucose 100 mg/dl Calcium Level 8.8 mg/dl Prostate Specific Antigen 0.620 ng/ml Assessment & Plan 61 year old male with no known past medical history presenting with chest pain 2 /2 PE. Concerns for pulmonary infarct, however, no change on repeat CXR and patient feels improved overall. Not requiring pain meds. Was transferred to the floor and repeat INR on 04/20 was still 1.1. Pulm considered Xarelto, however, this was too expensive and not covered by insurance. He was transitioned to Lovenox SQ for continued bridge as outpatient. 1. Acute pulmonary embolism, RLL-questionable pulm infarct, however, CXR is unchanged. Appreciate continued pulm recs. Considered Xarelto but cost prohibitive. Lovenox started to continue with bridge to coumadin as outpatient. Plan for dc in am. Provoked PE as patient had vascular injury to his leg two months ago, however, hypercoagulable workup is pending. PSA was also negative. No DVT per us. Cont incentive spirometry and pain mangement. 2. Thyroid nodule-found incidentally on imaging. TSH normal. Further workup as outpatient. 3. Leukocytosis 2/2 #1 DVT prophy: coumadin/Lovenox Full code Dispo: to home in am., Constanza Parekh DO [facility] Hospitalist Current Inpatient Medications: Current Inpatient Medications Medications (Trade) Dose Ordered Sig/Daniel Route Start Time Stop Time Status Last Admin Dose Admin Ioversol (Optiray 320) 125 ml UD PRN IV 04/17/17 14:30 04/21/17 14:29 Multivitamins (Multivitamin Tab) 1 tab DAILY PO 04/18/17 09:00 05/18/17 08:59 04/20/17 08:52 1 TAB Acetaminophen (Tylenol Tab) 650 mg Q4H PRN PO 04/17/17 17:00 05/17/17 16:59 04/18/17 19:21 650 MG Ondansetron HCl (Zofran Inj) 4 mg Q6H PRN IV 04/17/17 17:00 05/17/17 16:59 04/18/17 02:45 4 MG Heparin Sodium/ Dextrose 500 ml @ 27 mls/hr [id number] PRN IV 04/17/17 18:15 05/17/17 18:14 04/20/17 06:48 27 MLS/HR Warfarin Sodium (Coumadin Tab) 5 mg DAILY@16 PO 04/18/17 16:00 05/18/17 15:59 04/20/17 15:53 5 MG Hydromorphone HCl (Dilaudid Inj) 1 mg Q4H PRN IV 04/18/17 17:00 05/01/17 16:59
[2017-04-20] MEDS: ENOXAPARIN 80 MG/0.8 ML SYR SQ SCH (22:25)
[2017-04-20 23:10] VITALS: BP 129/76; PULSE 73; TEMP 36.9; O2SAT 93
[2017-04-21 05:58] LABS: INR 1.2 (0.9-1.1); PROTHROMBIN TIME (PATIENT) 12.4 SECONDS (9.0-12.0)
[2017-04-21] MEDS: MULTIVITAMIN TAB PO SCH (07:24)
[2017-04-21 07:41] VITALS: BP 131/77; PULSE 72; TEMP 36.9; O2SAT 94
[2017-04-21] MEDS: ENOXAPARIN 80 MG/0.8 ML SYR SQ SCH (11:04)
[2017-04-21] MEDS ORDERED: CMD5 PO (13:45)
[2017-04-21] MEDS ORDERED: LVNIS80 SQ (13:45)
--- NOTE | 2017-04-21 13:58 | Discharge Instructions ---
Discharge Instructions Date of Service Apr 21, 2017. Admission Reason for Admission: Pulmonary Embolism Discharge Discharge Diagnosis / Problem: acute pulmonary embolism Discharge Goals Goal(s): Prevent Disease Progression Activity Recommendations Activity Limitations: per Instructions/Follow-up section . Instructions / Follow-Up Instructions / Follow-Up Please take all medications as instructed. You have a follow-up appointment with Dr. Bud Hanna for 04/27 @ 0805 for follow-up from this hospitalization. Please bring all paperwork with you from discharge and arrive 10 minutes early. You have been given a prescription for Lovenox syringes, which should be taken twice daily until your INR level is therapeutic, that is between 2-3. You will be going to the [facility] to get this checked and your appointment is 04/23 @ 2:30pm. This office will adjust your coumadin levels based on this INR. I would recommend a follow-up chest xray is 4 weeks to ensure resolution of some abnormalities that were seen on the initial chest xray. This can be ordered through your primary care office. You will also need an outpatient workup on a thyroid nodule that was an incidental finding on your CT scan. It was a pleasure taking care of you! Call if you have any questions or problems. You can reach a [facility] hospitalist on duty at [facility] 24 hours a day by calling [phone]. Take care of yourself. Constanza Parekh DO [facility] Hospitalist Current Hospital Diet Patient's current hospital diet: Regular Diet Discharge Diet Recommended Diet: Regular Diet Procedures Procedures Performed: None. Pending Studies Studies pending at discharge: yes List of pending studies: Hypercoagulable workup is pending Medical Emergencies . Who to Call and When: Medical Emergencies: If at any time you feel your situation is an emergency, please call 911 immediately. . Non-Emergent Contact Non-Emergency issues call your: Primary Care Provider . . "Provider Documentation" section prepared by Constanza Parekh. . VTE Core Measure Inpt VTE Proph given/why not?: Warfarin (Coumadin), Other Anticoagulation
[2017-04-21] MEDS ORDERED: WARF-237 PO (14:27)
[2017-04-21 14:35] VITALS: BP 131/77; PULSE 72; TEMP 36.9; O2SAT 94
[2017-04-21] MEDS ORDERED: WARFARIN SOD 5 MG TAB PO SCH (16:00)
[2017-04-22 11:35] LABS: ANTITHROMBINIII ACTIVITY** 99 % activity (80-120); B2 GLYCOPROTEIN IGA <9 SAU (<=20); B2 GLYCOPROTEIN IGG <9 SGU (<=20); B2 GLYCOPROTEIN IGM <9 SMU (<=20)
[2017-04-23 16:32] LABS: DRVVT MIX INTERPRETAION Not Indicated; LAC PTT SCREEN 34 sec (<=40); PROTEIN C ACTIVITY** TC 1777X 94 % (70-180); PROTEIN S ACT(FUNCT)**1779X 65 % (70-150)
--- NOTE | 2017-04-30 22:19 | Discharge Summary ---
Discharge Summary Date of Service Apr 21, 2017. Discharge Summary Admission Date: Apr 17, 2017 at 16:15 Discharge Date: Apr 21, 2017 Discharge Disposition: Home Principal Diagnosis: Acute pulmonary embolism Thyroid nodule Leukocytosis Procedures: None. Vaccinations: None. Consultations: Pulmonary-Dr. Lee Pending Studies/Follow-Up: see instructions below Medication Reconciliation New Medications: Enoxaparin (Lovenox) 80 Mg/0.8 Ml Inj 80 MG SQ Q12@1000,2200 for 4 Days, #8 SYR 1 Refill Warfarin Sod (Coumadin) 5 Mg Tab 10 MG PO DAILY@16 for 30 Days, #30 TAB 0 Refills Continued Medications: Multiple Vitamin (Multi-Day Vitamins) 1 Tab Tab 1 TAB PO DAILY, TAB Admission Information HPI (per Admitting provider): 61 year old male with no known past medical history presenting with chest pain. Patient follows with Dr. Charles for Primary Care. 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 No recent surgery, long car or plane rides, episode of being bed bound. A few weeks ago, he noticed right upper leg swelling and tenderness, which resolved eventually. Last night, patient suddenly developed rights sided chest pain, worse with inspiration which persisted until today. Denies cough, sputum, hemoptysis, fever/chills. Pain persisted today prompting consult to the ER. CT chest (+ ) right lower lobe PE with pulmonary infarct Patient was started on Heparin bolus + drip and fentanyl and dilaudid. While being observed at the ER, after his blood draw, patient was having extreme right sided chest pain and then felt like he was passing out and noted to be pale He was laid down and after pain medication was given, felt improved. On exam, patient seen with family at bedside. He is very pleasant, speaks in sentences but still has moderate chest pain. No active dyspnea, dizziness, nausea. No other symptoms. Physical Exam (per Admitting): General Appearance: WD/WN, no apparent distress Head: normocephalic, atraumatic Eyes: normal inspection, PERRL, EOMI, sclerae normal ENT: normal ENT inspection, hearing grossly normal, pharynx normal Neck: supple, no adenopathy, thyroid normal, no JVD, trachea midline Respiratory/Chest: lungs clear, normal breath sounds, no respiratory distress, no accessory muscle use Cardiovascular: regular rate, rhythm, no JVD, no murmur, normal peripheral pulses Abdomen/GI: normal bowel sounds, non tender, soft Back: normal inspection, no CVA tenderness Extremities/Musculoskelatal: normal inspection, no calf tenderness, no pedal edema 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 Concerns for pulmonary infarct, however, no change on repeat CXR and patient feels improved overall. Not requiring pain meds. Was transferred to the floor and repeat INR on 04/20 was still 1.1. Pulm considered Xarelto, however, this was too expensive and not covered by insurance. He was transitioned to Lovenox SQ for continued bridge as outpatient. 1. Acute pulmonary embolism, RLL-questionable pulm infarct, however, CXR is unchanged. Appreciate continued pulm recs. Considered Xarelto but cost prohibitive. Lovenox started to continue with bridge to coumadin as outpatient. Plan for dc in am. Provoked PE as patient had vascular injury to his leg two months ago, however, hypercoagulable workup is pending. PSA was also negative. No DVT per us. Cont incentive spirometry and pain mangement. 2. Thyroid nodule-found incidentally on imaging. TSH normal. Further workup as outpatient. 3. Leukocytosis 2/2 #1 By day of discharge he was tolerating PO, mentating appropriately and was ambulatory and pain-free. He was discharged in stable condition with close PCP and coumadin clinic follow-up. Total time spent on discharge = 60 minutes This includes examination of the patient, discharge planning, medication reconciliation, and communication with other providers. Discharge Instructions Discharge Instructions Date of Service Apr 21, 2017. Admission Reason for Admission: Pulmonary Embolism Discharge Discharge Diagnosis / Problem: acute pulmonary embolism Discharge Goals Goal(s): Prevent Disease Progression Activity Recommendations Activity Limitations: per Instructions/Follow-up section . Instructions / Follow-Up Instructions / Follow-Up Please take all medications as instructed. You have a follow-up appointment with Dr. Bud Hanna for 04/27 @ 2892 for follow-up from this hospitalization. Please bring all paperwork with you from discharge and arrive 10 minutes early. You have been given a prescription for Lovenox syringes, which should be taken twice daily until your INR level is therapeutic, that is between 2-3. You will be going to the [facility] to get this checked and your appointment is 04/23 @ 2:30pm. This office will adjust your coumadin levels based on this INR. I would recommend a follow-up chest xray is 4 weeks to ensure resolution of some abnormalities that were seen on the initial chest xray. This can be ordered through your primary care office. It was a pleasure taking care of you! Call if you have any questions or problems. You can reach a [facility] hospitalist on duty at [facility] 24 hours a day by calling [phone]. Take care of yourself. Constanza Parekh, DO [facility]ist Additional Copies To Bud Hanna M.D.[email or web address])
== END 2017-04-21 14:57 | disposition home or self-care (01) | DRG 176 ==
LOC: C.EDB 12:25 → C.2T 16:15 → ENRESERV 17:15 → C.MS2W 04-19 12:34 → ENRESERV 04-19 13:23
PROVIDERS: ADMIT Internal Medicine; ATTEND Hospitalist
DX: I26.99 Other pulmonary embolism without acute cor pulmonale (principal); D72.829 Elevated white blood cell count, unspecified; R55 Syncope and collapse; E04.1 Nontoxic single thyroid nodule